=== PATIENT | male | born 1940 | race Caucasian/White ===

== ENCOUNTER 2020-01-23 14:20 | Inpatient (IN) | payer MEDICARE, MEDICAID ==
--- NOTE | 2020-01-23 15:08 | EDM.PDOC ---
ED HPI GENERAL MEDICAL PROBLEM - General Time Seen by Provider: 01/23/20 15:06 Source of Information: Reports: Patient, Family History Limitations: Reports: No Limitations - History of Present Illness INITIAL COMMENTS - FREE TEXT/NARRATIVE: Charlie came in with EMS,with complains of falling x 2 at the [facility] today.he was confused,and a poor historian.He feels dizzy,and had some dry heaves.He had difficulty walking.No fever or upper respiratory symptoms.His PMH includes MDD,AGUSTINA,DM and HTN - Related Data Allergies Allergy/AdvReac Type Severity Reaction Status Date / Time Sulfa (Sulfonamide Allergy Cannot Verified 12/20/15 09:08 Antibiotics) Remember Home Meds: Home Meds ALPRAZolam [Xanax] 0.25 mg PO 12/20/15 [History] Albuterol Sulfate [Ventolin Hfa] 12/20/15 [History] Aspirin 81 mg PO DAILY 12/20/15 [History] Carvedilol [Coreg] 6.25 mg PO 12/20/15 [History] Escitalopram [Lexapro] 10 mg PO 12/20/15 [History] Furosemide [Lasix] 40 mg PO DAILY 12/20/15 [History] Losartan [Cozaar] 12/20/15 [History] Meclizine [Antivert] 12.5 mg PO ONETIME 12/20/15 [History] Potassium Chloride [Klor-Con 10] 10 meq PO DAILY 12/20/15 [History] Tamsulosin HCl [Flomax] 0.4 mg PO 12/20/15 [History] atorvaSTATin [Lipitor] 10 mg PO ONETIME 12/20/15 [History] glipiZIDE [Glucotrol] 10 mg PO 12/20/15 [History] metFORMIN HCl [Glucophage XR] 750 mg PO 12/20/15 [History] traZODone 50 mg PO BEDTIME 12/20/15 [History] Past Medical History Cardiovascular History: Reports: CAD, Heart Failure, High Cholesterol, Hyper tension Psychiatric History: Reports: Anxiety Endocrine/Metabolic History: Reports: Diabetes, Type II - Past Surgical History Musculoskeletal Surgical History: Reports: Shoulder Surgery ED ROS GENERAL - Review of Systems Review Of Systems: Comprehensive ROS is negative, except as noted in HPI. ED EXAM, NEURO - Physical Exam Exam: See Below Exam Limited By: Altered Mental Status General Appearance: Alert Ears: Normal External Exam, Normal Canal, Hearing Grossly Normal, Normal TMs Head Exam: Atraumatic Neck: Normal Inspection Respiratory/Chest: Decreased Breath Sounds, Rales Cardiovascular: Normal Peripheral Pulses GI/Abdominal: Normal Bowel Sounds Neurological: Alert, Normal Mood/Affect. No: Oriented x 3 Extremities: Normal Inspection Psychiatric: Normal Affect Skin Exam: Warm, Dry EKG INTERPRETATION EKG Date: 01/23/20 Rhythm: NSR Course - Orders/Labs/Meds Orders: Active Orders 24 hr Category Date Time Status EKG Documentation Completion [RC] ASDIRECTED Care 01/23/20 14:25 Active CXR [Chest 2V] [CR] Stat Exams 01/23/20 14:40 Taken Head wo Cont [CT] Stat Exams 01/23/20 14:25 Taken Sodium Chloride 0.9% [Saline Flush] Med 01/23/20 14:25 Active 10 ml FLUSH ASDIRECTED PRN Peripheral IV Insertion Adult [OM.PC] Routine Oth 01/23/20 14:24 Ordered EKG 12 Lead [EK] Routine Ther 01/23/20 14:24 Ordered Medication Orders Sodium Chloride (Saline Flush) 10 ml FLUSH ASDIRECTED PRN PRN Reason: Keep Vein Open Labs: Laboratory Tests 01/23/20 01/23/20 01/23/20 Range/Units 14:45 14:45 14:45 WBC 11.2 (4.5-12.0) X10-3/uL RBC 3.91 L (4.30-5.75) x10(6)uL Hgb 12.1 L (13.5-17.8) g/dL Hct 37.7 (30.0-51.3) % MCV 96.4 H (80-96) fL MCH 31.0 (27.7-33.6) pg MCHC 32.2 (32.2-35.4) g/dL RDW 12.8 (11.5-15.5) % Plt Count 291 (125-369) X10(3)uL MPV 8.5 (7.4-10.4) fL Add Manual Diff Yes Neutrophils % (Manual) 98 H (46-82) % Lymphocytes % (Manual) 2 L (13-37) % Sodium 139 (135-145) mmol/L Potassium 4.2 (3.5-5.3) mmol/L Chloride 101 (100-110) mmol/L Carbon Dioxide 30 (21-32) mmol/L BUN 25 H (7-18) mg/dL Creatinine 1.7 H (0.70-1.30) mg/dL Est Cr Clr Drug Dosing TNP Estimated GFR (MDRD) 39 L (>60) BUN/Creatinine Ratio 14.7 (9-20) Glucose 167 H (80-116) mg/dL Calcium 8.6 (8.6-10.2) mg/dL Total Bilirubin 0.9 (0.1-1.3) mg/dL AST 27 H (5-25) IU/L ALT 20 (12-36) U/L Alkaline Phosphatase 105 (56-112) IU/L Troponin I 212.8 H* (4.0-60.3) pg/mL Total Protein 7.2 (6.0-8.0) g/dL Albumin 3.3 (3.2-4.6) g/dL Globulin 3.9 g/dL Albumin/Globulin Ratio 0.9 Meds: Medications Generic Name Dose Route Start Last Admin Trade Name Freq PRN Reason Stop Dose Admin Sodium Chloride 10 ml 01/23/20 14:25 Saline Flush FLUSH ASDIRECTED PRN Keep Vein Open Departure - Departure Time of Disposition: 16:34 Disposition: Still A Patient 30 Clinical Impression: Malaise - Discharge Information - Problem List & Annotations (1) Elevated troponin SNOMED Code(s): 593120484, 253445285, 301769646 Code(s): R79.89 - OTHER SPECIFIED ABNORMAL FINDINGS OF BLOOD CHEMISTRY Status: Acute Current Visit: Yes (2) Malaise SNOMED Code(s): 794979602 Code(s): R53.81 - OTHER MALAISE Status: Acute Current Visit: No (3) Diabetes type 2, controlled SNOMED Code(s): 91566036, 573224232 Code(s): E11.9 - TYPE 2 DIABETES MELLITUS WITHOUT COMPLICATIONS Status: Acute Current Visit: Yes (4) Falls frequently SNOMED Code(s): 698518624 Code(s): R29.6 - REPEATED FALLS Status: Acute Current Visit: Yes (5) BPH (benign prostatic hyperplasia) SNOMED Code(s): 977334147 Code(s): N40.0 - BENIGN PROSTATIC HYPERPLASIA WITHOUT LOWER URINRY TRACT SYMP Status: Acute Current Visit: Yes (6) H/O: CVA (cerebrovascular accident) SNOMED Code(s): 586131393 Code(s): Z86.73 - PRSNL HX OF TIA (TIA), AND CEREB INFRC W/O RESID DEFICITS Status: Acute Current Visit: Yes (7) Memory deficit SNOMED Code(s): 052591852 Code(s): R41.3 - OTHER AMNESIA Status: Acute Current Visit: Yes (8) Anxiety disorder, unspecified SNOMED Code(s): 444214560 Code(s): F41.9 - ANXIETY DISORDER, UNSPECIFIED Status: Acute Current Visit: No Qualifiers: Anxiety disorder type: unspecified anxiety disorder Qualified Code(s): F41.9 - Anxiety disorder, unspecified - Problem List Review Problem List Initiated/Reviewed/Updated: Yes - My Orders Last 24 Hours: My Active Orders 01/23/20 14:24 Peripheral IV Insertion Adult [OM.PC] Routine EKG 12 Lead [EK] Routine 01/23/20 14:25 EKG Documentation Completion [RC] ASDIRECTED Head wo Cont [CT] Stat Sodium Chloride 0.9% [Saline Flush] 10 ml FLUSH ASDIRECTED PRN 01/23/20 14:40 CXR [Chest 2V] [CR] Stat - Assessment/Plan Last 24 Hours: My Active Orders 01/23/20 14:24 Peripheral IV Insertion Adult [OM.PC] Routine EKG 12 Lead [EK] Routine 01/23/20 14:25 EKG Documentation Completion [RC] ASDIRECTED Head wo Cont [CT] Stat Sodium Chloride 0.9% [Saline Flush] 10 ml FLUSH ASDIRECTED PRN 01/23/20 14:40 CXR [Chest 2V] [CR] Stat Plan: His Trop is up.I will admit.
[2020-01-23] MEDS ORDERED: Albuterol/Ipratropium 3.0-0.5 MG/3 ML Neb Soln INH PRN (16:39)
[2020-01-23] MEDS: atorvaSTATin 10 MG Tab PO SCH (22:19)
--- NOTE | 2020-01-24 07:06 | PCM.HP.2 ---
H&P History of Present Illness - General Date of Service: 01/24/20 Admit Problem/Dx: Admission Diagnosis/Problem Admission Diagnosis/Problem Falls Source of Information: Patient - History of Present Illness Initial Comments - Free Text/Narative: Dandre is a 79-year-old male who came in last night because of weakness. He is from [facility], and metformin twice. He was noted to be generally weak and could not support himself. He is a poor historian. His medical record indicates that he has a history of coronary disease, hypertension, dementia and previous CVA. According to the weakness is 80 noted to his head and he does not endorse any headache, weakness of one side, chest pain or cough. He does have a history of CHF and is noted to be audibly wheezing. - Related Data Allergies/Adverse Reactions: Allergies Allergy/AdvReac Type Severity Reaction Status Date / Time Sulfa (Sulfonamide Allergy Cannot Verified 12/20/15 09:08 Antibiotics) Remember Home Medications: Home Meds ALPRAZolam [Xanax] 0.25 mg PO BID 12/20/15 [History] Aspirin 81 mg PO DAILY 12/20/15 [History] Carvedilol [Coreg] 6.25 mg PO BID 12/20/15 [History] Escitalopram [Lexapro] 10 mg PO DAILY 12/20/15 [History] Losartan [Cozaar] 100 mg PO DAILY 12/20/15 [History] Potassium Chloride [Klor-Con 10] 10 meq PO DAILY 12/20/15 [History] Tamsulosin HCl [Flomax] 0.4 mg PO DAILY 12/20/15 [History] atorvaSTATin [Lipitor] 10 mg PO ONETIME 12/20/15 [History] glipiZIDE [Glucotrol] 10 mg PO DAILY 12/20/15 [History] metFORMIN HCl [Glucophage XR] 1,000 mg PO DAILY 12/20/15 [History] traZODone 50 mg PO BEDTIME 12/20/15 [History] Multivitamin [Multi-Vitamin Daily] 1 each PO DAILY 01/23/20 [History] Vit D3 & K/Berberine HCl/Hops [Ostera] 1 each PO DAILY 01/23/20 [History] Past Medical History HEENT History: Reports: None Cardiovascular History: Reports: CAD, Heart Failure, High Cholesterol, Hypertension Gastrointestinal History: Reports: Colon Polyp, Hemorrhoids Genitourinary History: Reports: Renal Calculus Musculoskeletal History: Reports: Arthritis, Other (See Below) Other Musculoskeletal History: surgery on right arm and hand in past Neurological History: Reports: CVA Psychiatric History: Reports: Anxiety Endocrine/Metabolic History: Reports: Diabetes, Type II, Obesity/BMI 30+ - Infectious Disease History Infectious Disease History: Reports: Chicken Pox, Measles - Past Surgical History HEENT Surgical History: Reports: Adenoidectomy, Tonsillectomy Cardiovascular Surgical History: Reports: None GI Surgical History: Reports: Appendectomy, Colonoscopy Male Surgical History: Reports: None Endocrine Surgical History: Reports: None Neurological Surgical History: Reports: None Musculoskeletal Surgical History: Reports: None, Shoulder Surgery Dermatological Surgical History: Reports: None Social & Family History - Family History Family Medical History: Noncontributory - Tobacco Use Smoking Status *Q: Former Smoker Years of Tobacco use: 30 Packs/Tins Daily: 2 Used Tobacco, but Quit: Yes Month/Year Tobacco Last Used: january 2014 Second Hand Smoke Exposure: No - Caffeine Use Caffeine Use: Reports: Coffee - Recreational Drug Use Recreational Drug Use: No H&P Review of Systems - Review of Systems: Review Of Systems: Comprehensive ROS is negative, except as noted in HPI. Exam - Exam Exam: See Below - Vital Signs Vital Signs: Last Vital Signs Temp 98.6 F 01/24/20 00:25 Pulse 93 01/24/20 00:25 Resp 16 01/24/20 00:25 BP 106/58 L 01/24/20 00:25 Pulse Ox 90 L 01/24/20 00:25 Weight: 95.436 kg - Exam General: Alert, Mild Distress HEENT: PERRLA, Hearing Intact, Mucosa Moist & [place], Nares Patent, Normal Nasal Septum, Posterior Pharynx Clear, Conjunctiva Clear, EOMI, EACs Clear, TMs Clear Neck: Supple, Trachea Midline, 2 Lungs: Crackles, Rales, Wheezing Cardiovascular: Regular Rate GI/Abdominal Exam: Normal Bowel Sounds, Soft, Non-Tender, No Organomegaly, No Distention, No Abnormal Bruit, No Mass, Pelvis Stable (Male) Exam: Deferred Rectal (Males) Exam: Deferred Back Exam: Normal Inspection, Full Range of Motion, NT Extremities: Normal Inspection, Normal Range of Motion, Non-Tender, No Pedal Edema, Normal Capillary Refill Skin: Warm, Dry, Intact Neurological: Cranial Nerves Intact, Reflexes Equal Bilateral Neuro Extensive - Mental Status: No: Oriented x3 Neuro Extensive - Motor, Sensory, Reflexes: CN II-XII Intact Psychiatric: Normal Mood - Patient Data Lab Results Last 24 hrs: Laboratory Results - last 24 hr 01/23/20 01/23/20 01/23/20 Range/Units 14:45 14:45 14:45 WBC 11.2 (4.5-12.0) X10-3/uL RBC 3.91 L (4.30-5.75) x10(6)uL Hgb 12.1 L (13.5-17.8) g/dL Hct 37.7 (30.0-51.3) % MCV 96.4 H (80-96) fL MCH 31.0 (27.7-33.6) pg MCHC 32.2 (32.2-35.4) g/dL RDW 12.8 (11.5-15.5) % Plt Count 291 (125-369) X10(3)uL MPV 8.5 (7.4-10.4) fL Add Manual Diff Yes Neutrophils % (Manual) 98 H (46-82) % Lymphocytes % (Manual) 2 L (13-37) % Sodium 139 (135-145) mmol/L Potassium 4.2 (3.5-5.3) mmol/L Chloride 101 (100-110) mmol/L Carbon Dioxide 30 (21-32) mmol/L BUN 25 H (7-18) mg/dL Creatinine 1.7 H (0.70-1.30) mg/dL Est Cr Clr Drug Dosing TNP Estimated GFR (MDRD) 39 L (>60) BUN/Creatinine Ratio 14.7 (9-20) Glucose 167 H (80-116) mg/dL Calcium 8.6 (8.6-10.2) mg/dL Total Bilirubin 0.9 (0.1-1.3) mg/dL AST 27 H (5-25) IU/L ALT 20 (12-36) U/L Alkaline Phosphatase 105 (56-112) IU/L Troponin I 212.8 H* (4.0-60.3) pg/mL NT-Pro-B Natriuret Pep (<=450) pg/mL Total Protein 7.2 (6.0-8.0) g/dL Albumin 3.3 (3.2-4.6) g/dL Globulin 3.9 g/dL Albumin/Globulin Ratio 0.9 SARS Virus RNA (PCR) (NEGATIVE) 01/23/20 01/23/20 Range/Units 14:45 16:45 WBC (4.5-12.0) X10-3/uL RBC (4.30-5.75) x10(6)uL Hgb (13.5-17.8) g/dL Hct (30.0-51.3) % MCV (80-96) fL MCH (27.7-33.6) pg MCHC (32.2-35.4) g/dL RDW (11.5-15.5) % Plt Count (125-369) X10(3)uL MPV (7.4-10.4) fL Add Manual Diff Neutrophils % (Manual) (46-82) % Lymphocytes % (Manual) (13-37) % Sodium (135-145) mmol/L Potassium (3.5-5.3) mmol/L Chloride (100-110) mmol/L Carbon Dioxide (21-32) mmol/L BUN (7-18) mg/dL Creatinine (0.70-1.30) mg/dL Est Cr Clr Drug Dosing Estimated GFR (MDRD) (>60) BUN/Creatinine Ratio (9-20) Glucose (80-116) mg/dL Calcium (8.6-10.2) mg/dL Total Bilirubin (0.1-1.3) mg/dL AST (5-25) IU/L ALT (12-36) U/L Alkaline Phosphatase (56-112) IU/L Troponin I (4.0-60.3) pg/mL NT-Pro-B Natriuret Pep 5449 H* (<=450) pg/mL Total Protein (6.0-8.0) g/dL Albumin (3.2-4.6) g/dL Globulin g/dL Albumin/Globulin Ratio SARS Virus RNA (PCR) Negative (NEGATIVE) Result Diagrams: 01/24/20 06:20 01/24/20 06:20 EKG INTERPRETATION Rhythm: NSR Sepsis Event Note - Evaluation Sepsis Screening Result: No Definite Risk - Focused Exam Vital Signs: Vital Signs Temp Pulse Resp BP Pulse Ox 01/24/20 00:25 98.6 F 93 16 106/58 L 90 L 01/23/20 19:57 90 Date Exam was Performed: 01/24/20 Time Exam was Performed: 17:48 - Problem List (1) Elevated troponin SNOMED Code(s): 258469595, 927094281, 683158682 ICD Code: R79.89 - OTHER SPECIFIED ABNORMAL FINDINGS OF BLOOD CHEMISTRY Status: Acute Current Visit: Yes (2) Malaise SNOMED Code(s): 585129695 ICD Code: R53.81 - OTHER MALAISE Status: Acute Current Visit: Yes (3) Diabetes type 2, controlled SNOMED Code(s): 49564706, 714893222 ICD Code: E11.9 - TYPE 2 DIABETES MELLITUS WITHOUT COMPLICATIONS Status: Acute Current Visit: Yes Qualifiers: Diabetes mellitus lobsterman insulin use: without snf use (4) Falls frequently SNOMED Code(s): 008923502 ICD Code: R29.6 - REPEATED FALLS Status: Acute Current Visit: Yes (5) BPH (benign prostatic hyperplasia) SNOMED Code(s): 399634039 ICD Code: N40.0 - BENIGN PROSTATIC HYPERPLASIA WITHOUT LOWER URINRY TRACT SYMP Status: Acute Current Visit: Yes Qualifiers: Lower urinary tract symptom presence: symptoms present (6) H/O: CVA (cerebrovascular accident) SNOMED Code(s): 751773873 ICD Code: Z86.73 - PRSNL HX OF TIA (TIA), AND CEREB INFRC W/O RESID DEFICITS Status: Acute Current Visit: Yes (7) Memory deficit SNOMED Code(s): 419441438 ICD Code: R41.3 - OTHER AMNESIA Status: Acute Current Visit: Yes (8) Anxiety disorder, unspecified SNOMED Code(s): 795839363 ICD Code: F41.9 - ANXIETY DISORDER, UNSPECIFIED Status: Chronic Current Visit: No Qualifiers: Anxiety disorder type: unspecified anxiety disorder Qualified Code(s): F41.9 - Anxiety disorder, unspecified (9) CHF (congestive heart failure) SNOMED Code(s): 52828276 ICD Code: I50.9 - HEART FAILURE, UNSPECIFIED Status: Acute Current Visit: Yes Qualifiers: Heart failure type: unspecified (10) NSTEMI (non-ST elevated myocardial infarction) SNOMED Code(s): 91221043 ICD Code: I21.4 - NON-ST ELEVATION (NSTEMI) MYOCARDIAL INFARCTION Status: Acute Current Visit: Yes Problem List Initiated/Reviewed/Updated: Yes Orders Last 24hrs: Active Orders 24 hr Category Date Time Status Patient Status [ADT] Routine ADT 01/23/20 16:39 Active Blood Glucose Check, Bedside [RC] TIDMEALS Care 01/23/20 16:39 Active Height and Weight [RC] DAILY Care 01/23/20 16:39 Active Intake and Output [RC] QSHIFT Care 01/23/20 16:40 Active Oxygen Therapy [RC] PRN Care 01/23/20 16:39 Active RT Aerosol Therapy [RC] ASDIRECTED Care 01/23/20 16:41 Active VTE/DVT Education [RC] DAILY Care 01/23/20 16:39 Active Vital Signs [RC] 08,16,00 Care 01/23/20 16:39 Active OT Evaluation and Treatment [CONS] Routine Cons 01/24/20 07:05 Ordered PT Evaluation and Treatment [CONS] Routine Cons 01/24/20 07:05 Ordered Consistent Carbohydrate Diet [DIET] Diet 01/23/20 Breakfast Ordered CXR [Chest 2V] [CR] Stat Exams 01/23/20 14:40 Taken Head wo Cont [CT] Stat Exams 01/23/20 14:25 Taken BASIC METABOLIC PANEL,BMP [CHEM] AM Lab 01/24/20 06:20 Received CBC WITH AUTO DIFF [HEME] AM Lab 01/24/20 06:20 Received TROPONIN I [CHEM] AM Lab 01/24/20 06:20 Received ALPRAZolam [Xanax] Med 01/24/20 09:00 Active 0.25 mg PO BID Albuterol/Ipratropium [DuoNeb 3.0-0.5 MG/3 ML] Med 01/23/20 16:39 Active 3 ml INH ONETIME PRN Aspirin Med 01/24/20 09:00 Active 81 mg PO DAILY Escitalopram [Lexapro] Med 01/24/20 09:00 Active 10 mg PO DAILY Furosemide [Lasix] Med 01/24/20 09:00 Ordered 20 mg PO DAILY Losartan [Cozaar] Med 01/24/20 09:00 Active 100 mg PO DAILY Multivitamins [Tab-A-Jazmyn] Med 01/24/20 09:00 Active 1 tab PO DAILY Potassium Chloride [Klor-Con 10] Med 01/24/20 09:00 Active 10 meq PO DAILY Sodium Chloride 0.9% [Saline Flush] Med 01/23/20 14:25 Active 10 ml FLUSH ASDIRECTED PRN Tamsulosin [Flomax] Med 01/24/20 09:00 Active 0.4 mg PO DAILY Vit D3 & K/Berberine HCl/Hops [Ostera] Med 01/24/20 09:00 Pending 1 each PO DAILY atorvaSTATin [Lipitor] Med 01/23/20 22:00 Active 10 mg PO Q24H carvediloL [Coreg] Med 01/24/20 09:00 Active 6.25 mg PO BID glipiZIDE [Glucotrol] Med 01/24/20 09:00 Active 10 mg PO DAILY metFORMIN [Glucophage XR] Med 01/24/20 09:00 Active 1,000 mg PO DAILY traZODone Med 01/24/20 21:00 Active 50 mg PO BEDTIME Peripheral IV Insertion Adult [OM.PC] Routine Oth 01/23/20 14:24 Ordered Resuscitation Status Routine Resus Stat 01/23/20 16:39 Ordered EKG 12 Lead [EK] Routine Ther 01/23/20 14:24 Ordered Medication Orders Albuterol/Ipratropium (Duoneb 3.0-0.5 Mg/3 Ml) 3 ml INH ONETIME PRN PRN Reason: Shortness Of Breath/wheezing Last Admin: 01/23/20 19:57 Dose: 3 ml Documented by: CHERELLE Alprazolam (Xanax) 0.25 mg PO BID [facility] Aspirin (Aspirin) 81 mg PO DAILY [facility] Atorvastatin Calcium (Lipitor) 10 mg PO Q24H DAVID Last Admin: 01/23/20 22:19 Dose: 10 mg Documented by: CHERELLE Carvedilol (Coreg) 6.25 mg PO BID [facility] Escitalopram Oxalate (Lexapro) 10 mg PO DAILY [facility] Furosemide (Lasix) 20 mg PO DAILY [facility] Glipizide (Glucotrol) 10 mg PO DAILY [facility] Losartan Potassium (Cozaar) 100 mg PO DAILY [facility] Metformin HCl (Glucophage Xr) 1,000 mg PO DAILY [facility] Multivitamins/Minerals/Vitamin C (Tab-A-Jazmyn) 1 tab PO DAILY DAVID Non-Formulary Medication (Vit D3 & K/Berberine Hcl/Hops [Ostera]) 1 each PO DAILY DAVID Potassium Chloride (Klor-Con 10) 10 meq PO DAILY DAVID Sodium Chloride (Saline Flush) 10 ml FLUSH ASDIRECTED PRN PRN Reason: Keep Vein Open Tamsulosin HCl (Flomax) 0.4 mg PO DAILY DAVID Trazodone HCl (Trazodone) 50 mg PO BEDTIME DAVID Assessment/Plan Comment:: EKG is nondiagnostic, however his troponin is high,an d trending higher.. I will maximize medical treatment with Brilinta, aspirin Lovenox and beta reji. Also given Lasix for diuresis and repeat labs the morning.
[2020-01-24] MEDS: Sodium Chloride 0.9% 10 ML Syringe FLUSH PRN ×2 (07:58→18:28)
[2020-01-24] MEDS ORDERED: Losartan 50 MG Tab PO SCH (09:00)
[2020-01-24] MEDS ORDERED: metFORMIN 500 MG Tab.ER PO SCH (09:00)
[2020-01-24] MEDS ORDERED: Losartan 100 MG Tab PO SCH (09:00)
[2020-01-24] MEDS ORDERED: Furosemide 20 MG Tab PO SCH (09:00)
[2020-01-24] MEDS: Carvedilol 6.25 MG Tab PO SCH ×2 (09:50→21:13)
[2020-01-24] MEDS: Aspirin 81 MG Tab.Chew PO SCH (09:50)
[2020-01-24] MEDS: Potassium Chloride 10 MEQ Tab.ER PO SCH (09:51)
[2020-01-24] MEDS: Escitalopram 10 MG Tab PO SCH (09:52)
[2020-01-24] MEDS: Multivitamin Tab PO SCH (09:52)
[2020-01-24] MEDS: ALPRAZolam 0.25 MG Tab PO SCH ×2 (09:52→21:13)
[2020-01-24] MEDS: Tamsulosin 0.4 MG Cap.ER PO SCH (09:52)
[2020-01-24] MEDS: Cholecalciferol (Vitamin D3) 25 MCG Tab PO SCH (09:52)
[2020-01-24] MEDS: Albuterol/Ipratropium 3.0-0.5 MG/3 ML Neb Soln NEB PRN (14:53)
[2020-01-24] MEDS ORDERED: Ticagrelor 90 MG Tab PO ONE (17:47)
[2020-01-24] MEDS: Furosemide 20 MG/2 ML VIAL IVPUSH SCH (18:27)
[2020-01-24] MEDS: Enoxaparin 150 MG/1 ML Syringe SUBCUT SCH (18:27)
[2020-01-24] MEDS: traZODone 50 MG Tab PO SCH (21:13)
[2020-01-24] MEDS: atorvaSTATin 10 MG Tab PO SCH (21:13)
[2020-01-25] MEDS: Albuterol/Ipratropium 3.0-0.5 MG/3 ML Neb Soln NEB PRN ×2 (05:30→17:30)
[2020-01-25] MEDS: Sodium Chloride 0.9% 10 ML Syringe FLUSH PRN ×2 (08:22→13:13)
[2020-01-25] MEDS: Furosemide 20 MG/2 ML VIAL IVPUSH SCH ×2 (08:22→13:10)
[2020-01-25] MEDS: Potassium Chloride 10 MEQ Tab.ER PO SCH (08:24)
[2020-01-25] MEDS: Aspirin 81 MG Tab.Chew PO SCH (08:24)
[2020-01-25] MEDS: ALPRAZolam 0.25 MG Tab PO SCH ×2 (08:25→20:58)
[2020-01-25] MEDS: Tamsulosin 0.4 MG Cap.ER PO SCH (08:25)
[2020-01-25] MEDS: Multivitamin Tab PO SCH (08:25)
[2020-01-25] MEDS: Carvedilol 6.25 MG Tab PO SCH ×2 (08:25→20:58)
[2020-01-25] MEDS: Cholecalciferol (Vitamin D3) 25 MCG Tab PO SCH (08:25)
[2020-01-25] MEDS: Escitalopram 10 MG Tab PO SCH (08:26)
[2020-01-25] MEDS: Enoxaparin 150 MG/1 ML Syringe SUBCUT SCH (09:26)
--- NOTE | 2020-01-25 09:31 | PCM.PN ---
- General Info Date of Service: 01/25/20 Subjective Update: Feels better. Still weak.Denies Chest pain Functional Status: Reports: Pain Controlled - Review of Systems General: Reports: No Symptoms HEENT: Reports: No Symptoms Pulmonary: Reports: Cough Cardiovascular: Reports: No Symptoms Gastrointestinal: Reports: No Symptoms Genitourinary: Reports: No Symptoms Musculoskeletal: Reports: No Symptoms - Patient Data Vitals - Most Recent: Last Vital Signs Temp 98.4 F 01/25/20 08:09 Pulse 61 01/25/20 08:25 Resp 20 01/25/20 08:09 BP 123/60 01/25/20 08:25 Pulse Ox 94 L 01/25/20 08:09 Weight - Most Recent: 96.978 kg I&O - Last 24 Hours: Intake & Output 01/24/20 01/25/20 01/25/20 22:59 06:59 14:59 Intake Total 240 240 Output Total 325 350 Balance -85 -110 Lab Results Last 24 Hours: Laboratory Results - last 24 hr 01/24/20 01/24/20 01/24/20 Range/Units 06:47 10:56 17:46 POC Glucose 160 H 203 H 86 D (80-116) mg/dL 01/25/20 Range/Units 05:28 POC Glucose 151 H (80-116) mg/dL Med Orders - Current: Current Medications Albuterol/Ipratropium (Duoneb 3.0-0.5 Mg/3 Ml) 3 ml NEB QID PRN PRN Reason: Shortness of Breath Last Admin: 01/25/20 05:30 Dose: 3 ml Documented by: Alprazolam (Xanax) 0.25 mg PO BID [facility] Last Admin: 01/25/20 08:25 Dose: 0.25 mg Documented by: Aspirin (Aspirin) 81 mg PO DAILY [facility] Last Admin: 01/25/20 08:24 Dose: 81 mg Documented by: Atorvastatin Calcium (Lipitor) 10 mg PO Q24H [facility] Last Admin: 01/24/20 21:13 Dose: 10 mg Documented by: Carvedilol (Coreg) 6.25 mg PO BID [facility] Last Admin: 01/25/20 08:25 Dose: 6.25 mg Documented by: Cholecalciferol (Vitamin D3) 25 mcg PO DAILY [facility] Last Admin: 07/05/20 08:25 Dose: 25 mcg Documented by: Enoxaparin Sodium (Lovenox) 150 mg SUBCUT DAILY [facility] Last Admin: 01/24/20 18:27 Dose: 150 mg Documented by: Escitalopram Oxalate (Lexapro) 10 mg PO DAILY [facility] Last Admin: 01/25/20 08:26 Dose: 10 mg Documented by: Furosemide (Lasix) 20 mg IVPUSH BIDDIURETIC [facility] Last Admin: 01/25/20 08:22 Dose: 20 mg Documented by: Glipizide (Glucotrol) 10 mg PO DAILY [facility] Last Admin: 01/25/20 08:25 Dose: 10 mg Documented by: Multivitamins/Minerals/Vitamin C (Tab-A-Jazmyn) 1 tab PO DAILY [facility] Last Admin: 01/25/20 08:25 Dose: 1 tab Documented by: Potassium Chloride (Klor-Con 10) 10 meq PO DAILY [facility] Last Admin: 01/25/20 08:24 Dose: 10 meq Documented by: Sodium Chloride (Saline Flush) 10 ml FLUSH ASDIRECTED PRN PRN Reason: Keep Vein Open Last Admin: 01/25/20 08:22 Dose: 10 ml Documented by: Tamsulosin HCl (Flomax) 0.4 mg PO DAILY [facility] Last Admin: 01/25/20 08:25 Dose: 0.4 mg Documented by: Trazodone HCl (Trazodone) 50 mg PO BEDTIME [facility] Last Admin: 01/24/20 21:13 Dose: 50 mg Documented by: Discontinued Medications Albuterol/Ipratropium (Duoneb 3.0-0.5 Mg/3 Ml) 3 ml INH ONETIME PRN PRN Reason: Shortness Of Breath/wheezing Last Admin: 01/23/20 19:57 Dose: 3 ml Documented by: Furosemide (Lasix) 20 mg PO DAILY [facility] Last Admin: 01/24/20 09:51 Dose: 20 mg Documented by: Losartan Potassium (Cozaar) 100 mg PO DAILY [facility] Losartan Potassium (Cozaar) 100 mg PO DAILY [facility] Last Admin: 01/24/20 09:51 Dose: 100 mg Documented by: Metformin HCl (Glucophage Xr) 1,000 mg PO DAILY [facility] Last Admin: 01/24/20 09:51 Dose: 1,000 mg Documented by: Ticagrelor (Brilinta) 180 mg PO ONETIME ONE Stop: 01/24/20 17:48 Last Admin: 01/24/20 18:27 Dose: 180 mg Documented by: - Exam General: Alert HEENT: Pupils Equal Lungs: Crackles, Rales Cardiovascular: Regular Rate, Murmurs Back Exam: Normal Inspection Sepsis Event Note - Evaluation Sepsis Screening Result: No Definite Risk - Focused Exam Vital Signs: Vital Signs Temp Pulse Pulse Resp BP BP Pulse Ox 01/25/20 08:25 61 123/60 01/25/20 08:09 98.4 F 61 20 123/60 94 L 01/25/20 07:01 98.0 F 70 16 126/58 L 97 01/25/20 06:15 01/25/20 05:30 71 01/25/20 00:00 99.1 F 78 16 112/57 L 95 01/24/20 22:20 Pulse Ox 01/25/20 08:25 01/25/20 08:09 01/25/20 07:01 01/25/20 06:15 96 01/25/20 05:30 01/25/20 00:00 01/24/20 22:20 97 Date Exam was Performed: 01/25/20 Time Exam was Performed: 09:29 - Problem List & Annotations (1) Elevated troponin SNOMED Code(s): 291193197, 175570484, 508793864 Code(s): R79.89 - OTHER SPECIFIED ABNORMAL FINDINGS OF BLOOD CHEMISTRY Status: Acute Current Visit: Yes (2) Malaise SNOMED Code(s): 334260532 Code(s): R53.81 - OTHER MALAISE Status: Acute Current Visit: Yes (3) Diabetes type 2, controlled SNOMED Code(s): 13905597, 969997273 Code(s): E11.9 - TYPE 2 DIABETES MELLITUS WITHOUT COMPLICATIONS Status: Ac [place] Current Visit: Yes Qualifiers: Diabetes mellitus intermission coordinator insulin use: without intermission coordinator use (4) Falls frequently SNOMED Code(s): 036210510 Code(s): R29.6 - REPEATED FALLS Status: Acute Current Visit: Yes (5) BPH (benign prostatic hyperplasia) SNOMED Code(s): 713070898 Code(s): N40.0 - BENIGN PROSTATIC HYPERPLASIA WITHOUT LOWER URINRY TRACT SYMP Status: Acute Current Visit: Yes Qualifiers: Lower urinary tract symptom presence: symptoms present (6) H/O: CVA (cerebrovascular accident) SNOMED Code(s): 512468479 Code(s): Z86.73 - PRSNL HX OF TIA (TIA), AND CEREB INFRC W/O RESID DEFICITS Status: Acute Current Visit: Yes (7) Memory deficit SNOMED Code(s): 412753638 Code(s): R41.3 - OTHER AMNESIA Status: Acute Current Visit: Yes (8) Anxiety disorder, unspecified SNOMED Code(s): 881391233 Code(s): F41.9 - ANXIETY DISORDER, UNSPECIFIED Status: Chronic Current Visit: No Qualifiers: Anxiety disorder type: unspecified anxiety disorder Qualified Code(s): F41.9 - Anxiety disorder, unspecified (9) CHF (congestive heart failure) SNOMED Code(s): 69373302 Code(s): I50.9 - HEART FAILURE, UNSPECIFIED Status: Acute Current Visit: Yes Qualifiers: Heart failure type: unspecified (10) NSTEMI (non-ST elevated myocardial infarction) SNOMED Code(s): 69096368 Code(s): I21.4 - NON-ST ELEVATION (NSTEMI) MYOCARDIAL INFARCTION Status: Acute Current Visit: Yes - Problem List Review Problem List Initiated/Reviewed/Updated: Yes - My Orders Last 24 Hours: My Active Orders 01/24/20 09:00 ALPRAZolam [Xanax] 0.25 mg PO BID Aspirin 81 mg PO DAILY Cholecalciferol (Vitamin D3) [Vitamin D3] 25 mcg PO DAILY Escitalopram [Lexapro] 10 mg PO DAILY Multivitamins [Tab-A-Jazmyn] 1 tab PO DAILY Potassium Chloride [Klor-Con 10] 10 meq PO DAILY Tamsulosin [Flomax] 0.4 mg PO DAILY carvediloL [Coreg] 6.25 mg PO BID glipiZIDE [Glucotrol] 10 mg PO DAILY 01/24/20 14:40 Albuterol/Ipratropium [DuoNeb 3.0-0.5 MG/3 ML] 3 ml NEB QID PRN 01/24/20 14:42 RT Aerosol Therapy [RC] ASDIRECTED 01/24/20 18:00 Enoxaparin [Lovenox] 150 mg SUBCUT DAILY Furosemide [Lasix] 20 mg IVPUSH BIDDIURETIC 01/24/20 18:21 Moore Catheter Insertion [Insert Urinary Catheter] [OM.PC] Stat 01/24/20 18:22 Urinary Catheter Assessment [RC] QSHIFT 01/24/20 21:00 traZODone 50 mg PO BEDTIME 01/26/20 05:11 BASIC METABOLIC PANEL,BMP [CHEM] AM CBC WITH AUTO DIFF [HEME] AM PRO B-TYPE NATRIUR PEPT,BNPPRO [CHEM] DAILY TROPONIN I [CHEM] AM 01/27/20 05:11 PRO B-TYPE NATRIUR PEPT,BNPPRO [CHEM] DAILY 01/28/20 05:11 PRO B-TYPE NATRIUR PEPT,BNPPRO [CHEM] DAILY - Plan Plan:: Continue Lovenox for 24 h. BB,Aspirin. Repeat Labs in AM. PT/OT.
[2020-01-25] MEDS: traZODone 50 MG Tab PO SCH (20:58)
[2020-01-25] MEDS: atorvaSTATin 10 MG Tab PO SCH (21:00)
--- NOTE | 2020-01-26 08:58 | PCM.PN ---
- General Info Date of Service: 01/26/20 Subjective Update: Feels better. Still weak.Denies Chest pain. Functional Status: Reports: Pain Controlled - Review of Systems General: Reports: Weakness HEENT: Reports: No Symptoms Pulmonary: Reports: No Symptoms Cardiovascular: Reports: Orthopnea Gastrointestinal: Reports: No Symptoms Genitourinary: Reports: No Symptoms - Patient Data Vitals - Most Recent: Last Vital Signs Temp 98.6 F 01/26/20 00:00 Pulse 67 01/26/20 00:00 Resp 16 01/26/20 00:00 BP 130/64 01/26/20 00:00 Pulse Ox 96 01/26/20 00:00 Weight - Most Recent: 97.613 kg I&O - Last 24 Hours: Intake & Output 01/25/20 01/26/20 01/26/20 22:59 06:59 14:59 Intake Total 240 120 Output Total 650 175 Balance -410 -55 Lab Results Last 24 Hours: Laboratory Results - last 24 hr 01/25/20 01/25/20 01/26/20 Range/Units 11:29 17:05 06:12 WBC (4.5-12.0) X10-3/uL RBC (4.30-5.75) x10(6)uL Hgb (13.5-17.8) g/dL Hct (30.0-51.3) % MCV (80-96) fL MCH (27.7-33.6) pg MCHC (32.2-35.4) g/dL RDW (11.5-15.5) % Plt Count (125-369) X10(3)uL MPV (7.4-10.4) fL Neut % (Auto) (46-82) % Lymph % (Auto) (13-37) % [place] % (Auto) (4-12) % Eos % (Auto) (1.0-5.0) % Baso % (Auto) (0-2) % Neut # (Auto) (1.6-8.3) # Lymph # (Auto) (0.6-5.0) # [place] # (Auto) (0.0-1.3) # Eos # (Auto) (0.0-0.8) # Baso # (Auto) (0.0-0.2) # Sodium (135-145) mmol/L Potassium (3.5-5.3) mmol/L Chloride (100-110) mmol/L Carbon Dioxide (21-32) mmol/L BUN (7-18) mg/dL Creatinine (0.70-1.30) mg/dL Est Cr Clr Drug Dosing mL/min Estimated GFR (MDRD) (>60) BUN/Creatinine Ratio (9-20) Glucose (80-116) mg/dL POC Glucose 211 H 148 H 122 H (80-116) mg/dL Calcium (8.6-10.2) mg/dL Troponin I (4.0-60.3) pg/mL NT-Pro-B Natriuret Pep (<=450) pg/mL 01/26/20 01/26/20 01/26/20 Range/Units 06:25 06:25 06:25 WBC 7.3 (4.5-12.0) X10-3/uL RBC 3.48 L (4.30-5.75) x10(6)uL Hgb 10.9 L (13.5-17.8) g/dL Hct 33.4 (30.0-51.3) % MCV 96.1 H (80-96) fL MCH 31.2 (27.7-33.6) pg MCHC 32.5 (32.2-35.4) g/dL RDW 13.1 (11.5-15.5) % Plt Count 247 (125-369) X10(3)uL MPV 8.7 (7.4-10.4) fL Neut % (Auto) 82.3 H (46-82) % Lymph % (Auto) 7.4 L (13-37) % [place] % (Auto) 8.0 (4-12) % Eos % (Auto) 2 (1.0-5.0) % Baso % (Auto) 0 (0-2) % Neut # (Auto) 6.1 (1.6-8.3) # Lymph # (Auto) 0.5 L (0.6-5.0) # [place] # (Auto) 0.6 (0.0-1.3) # Eos # (Auto) 0.1 (0.0-0.8) # Baso # (Auto) 0.0 (0.0-0.2) # Sodium 139 (135-145) mmol/L Potassium 3.1 L (3.5-5.3) mmol/L Chloride 103 (100-110) mmol/L Carbon Dioxide 30 (21-32) mmol/L BUN 29 H (7-18) mg/dL Creatinine 1.3 (0.70-1.30) mg/dL Est Cr Clr Drug Dosing 46.04 mL/min Estimated GFR (MDRD) 54 L (>60) BUN/Creatinine Ratio 22.3 H (9-20) Glucose 119 H (80-116) mg/dL POC Glucose (80-116) mg/dL Calcium 8.1 L (8.6-10.2) mg/dL Troponin I 2870.4 H* (4.0-60.3) pg/mL NT-Pro-B Natriuret Pep 7456 H* (<=450) pg/mL Med Orders - Current: Current Medications Albuterol/Ipratropium (Duoneb 3.0-0.5 Mg/3 Ml) 3 ml NEB QID PRN PRN Reason: Shortness of Breath Last Admin: 01/25/20 17:30 Dose: 3 ml Documented by: Alprazolam (Xanax) 0.25 mg PO BID [facility] Last Admin: 01/25/20 20:58 Dose: 0.25 mg Documented by: Aspirin (Aspirin) 81 mg PO DAILY [facility] Last Admin: 01/25/20 08:24 Dose: 81 mg Documented by: Atorvastatin Calcium (Lipitor) 10 mg PO Q24H [facility] Last Admin: 01/25/20 21:00 Dose: 10 mg Documented by: Carvedilol (Coreg) 6.25 mg PO BID [facility] Last Admin: 01/25/20 20:58 Dose: 6.25 mg Documented by: Cholecalciferol (Vitamin D3) 25 mcg PO DAILY [facility] Last Admin: 01/25/20 08:25 Dose: 25 mcg Documented by: Enoxaparin Sodium (Lovenox) 150 mg SUBCUT DAILY [facility] Last Admin: 01/25/20 09:26 Dose: 150 mg Documented by: Escitalopram Oxalate (Lexapro) 10 mg PO DAILY [facility] Last Admin: 01/25/20 08:26 Dose: 10 mg Documented by: Furosemide (Lasix) 40 mg IVPUSH BID [facility] Glipizide (Glucotrol) 10 mg PO DAILY [facility] Last Admin: 01/25/20 08:25 Dose: 10 mg Documented by: Multivitamins/Minerals/Vitamin C (Tab-A-Jazmyn) 1 tab PO DAILY [facility] Last Admin: 01/25/20 08:25 Dose: 1 tab Documented by: Potassium Chloride (Klor-Con 10) 10 meq PO DAILY [facility] Last Admin: 01/25/20 08:24 Dose: 10 meq Documented by: Sodium Chloride (Saline Flush) 10 ml FLUSH ASDIRECTED PRN PRN Reason: Keep Vein Open Last Admin: 01/25/20 13:13 Dose: 10 ml Documented by: Tamsulosin HCl (Flomax) 0.4 mg PO DAILY [facility] Last Admin: 01/25/20 08:25 Dose: 0.4 mg Documented by: Trazodone HCl (Trazodone) 50 mg PO BEDTIME [facility] Last Admin: 01/25/20 20:58 Dose: 50 mg Documented by: Discontinued Medications Albuterol/Ipratropium (Duoneb 3.0-0.5 Mg/3 Ml) 3 ml INH ONETIME PRN PRN Reason: Shortness Of Breath/wheezing Last Admin: 01/23/20 19:57 Dose: 3 ml Documented by: Furosemide (Lasix) 20 mg PO DAILY [facility] Last Admin: 01/24/20 09:51 Dose: 20 mg Documented by: Furosemide (Lasix) 20 mg IVPUSH BIDDIURETIC [facility] Last Admin: 01/25/20 13:10 Dose: 20 mg Documented by: Losartan Potassium (Cozaar) 100 mg PO DAILY [facility] Losartan Potassium (Cozaar) 100 mg PO DAILY [facility] Last Admin: 01/24/20 09:51 Dose: 100 mg Documented by: Metformin HCl (Glucophage Xr) 1,000 mg PO DAILY [facility] Last Admin: 01/24/20 09:51 Dose: 1,000 mg Documented by: Ticagrelor (Brilinta) 180 mg PO ONETIME ONE Stop: 01/24/20 17:48 Last Admin: 01/24/20 18:27 Dose: 180 mg Documented by: - Exam Quality Assessment: No: Supplemental Oxygen General: Alert, Oriented HEENT: Pupils Equal Neck: Supple Lungs: Crackles, Rales Cardiovascular: Regular Rate GI/Abdominal Exam: Normal Bowel Sounds Back Exam: Normal Inspection Sepsis Event Note - Evaluation Sepsis Screening Result: No Definite Risk - Focused Exam Vital Signs: Vital Signs Temp Pulse Pulse Resp BP BP Pulse Ox 01/26/20 00:00 98.6 F 67 16 130/64 96 01/25/20 20:58 67 130/64 Date Exam was Performed: 01/26/20 Time Exam was Performed: 08:55 - Problem List & Annotations (1) NSTEMI (non-ST elevated myocardial infarction) SNOMED Code(s): 61985067 Code(s): I21.4 - NON-ST ELEVATION (NSTEMI) MYOCARDIAL INFARCTION Status: Acute Current Visit: Yes (2) Elevated troponin SNOMED Code(s): 128906810, 219698553, 407257217 Code(s): R79.89 - OTHER SPECIFIED ABNORMAL FINDINGS OF BLOOD CHEMISTRY Status: Acute Current Visit: Yes (3) Malaise SNOMED Code(s): 104338502 Code(s): R53.81 - OTHER MALAISE Status: Acute Current Visit: Yes (4) Diabetes type 2, controlled SNOMED Code(s): 91244054, 101142567 Code(s): E11.9 - TYPE 2 DIABETES MELLITUS WITHOUT COMPLICATIONS Status: Acute Current Visit: Yes Qualifiers: Diabetes mellitus group home insulin use: without group home use (5) Falls frequently SNOMED Code(s): 996735527 Code(s): R29.6 - REPEATED FALLS Status: Acute Current Visit: Yes (6) BPH (benign prostatic hyperplasia) SNOMED Code(s): 705037684 Code(s): N40.0 - BENIGN PROSTATIC HYPERPLASIA WITHOUT LOWER URINRY TRACT SYMP Status: Acute Current Visit: Yes Qualifiers: Lower urinary tract symptom presence: symptoms present (7) H/O: CVA (cerebrovascular accident) SNOMED Code(s): 450822043 Code(s): Z86.73 - PRSNL HX OF TIA (TIA), AND CEREB INFRC W/O RESID DEFICITS Status: Acute Current Visit: Yes (8) Memory deficit SNOMED Code(s): 144350948 Code(s): R41.3 - OTHER AMNESIA Status: Acute Current Visit: Yes (9) Anxiety disorder, unspecified SNOMED Code(s): 180453240 Code(s): F41.9 - ANXIETY DISORDER, UNSPECIFIED Status: Chronic Current Visit: No Qualifiers: Anxiety disorder type: unspecified anxiety disorder Qualified Code(s): F41.9 - Anxiety disorder, unspecified (10) CHF (congestive heart failure) SNOMED Code(s): 90798745 Code(s): I50.9 - HEART FAILURE, UNSPECIFIED Status: Acute Current Visit: Yes Qualifiers: Heart failure type: unspecified - Problem List Review Problem List Initiated/Reviewed/Updated: Yes - My Orders Last 24 Hours: My Active Orders 01/26/20 09:00 Furosemide [Lasix] 40 mg IVPUSH BID 01/27/20 05:11 BASIC METABOLIC PANEL,BMP [CHEM] AM CBC WITH AUTO DIFF [HEME] AM PRO B-TYPE NATRIUR PEPT,BNPPRO [CHEM] DAILY TROPONIN I [CHEM] AM 01/28/20 05:11 PRO B-TYPE NATRIUR PEPT,BNPPRO [CHEM] DAILY - Plan Plan:: Increase Lasix. Consult PT.
[2020-01-26] MEDS ORDERED: Furosemide 40 MG/4 ML VIAL IVPUSH SCH (09:00)
[2020-01-26] MEDS: Aspirin 81 MG Tab.Chew PO SCH (10:46)
[2020-01-26] MEDS: Multivitamin Tab PO SCH (10:46)
[2020-01-26] MEDS: Furosemide 40 MG/4 ML VIAL IVPUSH SCH ×2 (10:47→13:51)
[2020-01-26] MEDS: Carvedilol 6.25 MG Tab PO SCH ×2 (10:47→20:36)
[2020-01-26] MEDS: Cholecalciferol (Vitamin D3) 25 MCG Tab PO SCH (10:47)
[2020-01-26] MEDS: Potassium Chloride 10 MEQ Tab.ER PO SCH (10:49)
[2020-01-26] MEDS: ALPRAZolam 0.25 MG Tab PO SCH ×2 (11:05→20:46)
[2020-01-26] MEDS: Furosemide 20 MG/2 ML VIAL IVPUSH SCH (19:04)
[2020-01-26] MEDS: Escitalopram 10 MG Tab PO SCH ×2 (19:04→20:37)
[2020-01-26] MEDS: Tamsulosin 0.4 MG Cap.ER PO SCH ×2 (19:04→20:36)
[2020-01-26] MEDS: Albuterol/Ipratropium 3.0-0.5 MG/3 ML Neb Soln NEB PRN (20:32)
[2020-01-26] MEDS: traZODone 50 MG Tab PO SCH (20:37)
[2020-01-26] MEDS: atorvaSTATin 10 MG Tab PO SCH (21:02)
[2020-01-27] MEDS: Albuterol/Ipratropium 3.0-0.5 MG/3 ML Neb Soln NEB PRN (06:44)
[2020-01-27] MEDS: Furosemide 40 MG/4 ML VIAL IVPUSH SCH (07:52)
[2020-01-27] MEDS: Sodium Chloride 0.9% 10 ML Syringe FLUSH PRN (07:56)
[2020-01-27] MEDS: Aspirin 81 MG Tab.Chew PO SCH (08:01)
[2020-01-27] MEDS: Carvedilol 6.25 MG Tab PO SCH ×2 (08:01→20:28)
[2020-01-27] MEDS: Multivitamin Tab PO SCH (08:03)
[2020-01-27] MEDS: Potassium Chloride 10 MEQ Tab.ER PO SCH (08:03)
[2020-01-27] MEDS: Cholecalciferol (Vitamin D3) 25 MCG Tab PO SCH (08:04)
[2020-01-27] MEDS: ALPRAZolam 0.25 MG Tab PO SCH ×2 (08:04→20:28)
[2020-01-27] MEDS ORDERED: Metolazone 5 MG Tab PO ONE (08:29)
--- NOTE | 2020-01-27 08:33 | PCM.PN ---
- General Info Date of Service: 01/27/20 Subjective Update: Feels better. Still weak.Denies Chest pain.Needs O2. Functional Status: Reports: Pain Controlled - Review of Systems General: Reports: No Symptoms HEENT: Reports: No Symptoms Pulmonary: Reports: No Symptoms Cardiovascular: Reports: No Symptoms - Patient Data Vitals - Most Recent: Last Vital Signs Temp 97.8 F 01/27/20 07:41 Pulse 61 01/27/20 08:01 Resp 20 01/27/20 07:41 BP 118/54 L 01/27/20 08:01 Pulse Ox 88 L 01/27/20 07:43 Weight - Most Recent: 99.082 kg I&O - Last 24 Hours: Intake & Output 01/26/20 01/27/20 01/27/20 22:59 06:59 14:59 Intake Total 600 200 Output Total 900 250 Balance -300 -50 Lab Results Last 24 Hours: Laboratory Results - last 24 hr 01/26/20 01/27/20 01/27/20 Range/Units 16:44 06:30 06:30 WBC 6.9 (4.5-12.0) X10-3/uL RBC 3.42 L (4.30-5.75) x10(6)uL Hgb 10.7 L (13.5-17.8) g/dL Hct 33.1 (30.0-51.3) % MCV 96.7 H (80-96) fL MCH 31.3 (27.7-33.6) pg MCHC 32.4 (32.2-35.4) g/dL RDW 12.8 (11.5-15.5) % Plt Count 272 (125-369) X10(3)uL MPV 8.7 (7.4-10.4) fL Neut % (Auto) 77.2 (46-82) % Lymph % (Auto) 10.5 L (13-37) % Weston % (Auto) 9.8 (4-12) % Eos % (Auto) 2 (1.0-5.0) % Baso % (Auto) 0 (0-2) % Neut # (Auto) 5.3 (1.6-8.3) # Lymph # (Auto) 0.7 (0.6-5.0) # Weston # (Auto) 0.7 (0.0-1.3) # Eos # (Auto) 0.2 (0.0-0.8) # Baso # (Auto) 0.0 (0.0-0.2) # Sodium (135-145) mmol/L Potassium (3.5-5.3) mmol/L Chloride (100-110) mmol/L Carbon Dioxide (21-32) mmol/L BUN (7-18) mg/dL Creatinine (0.70-1.30) mg/dL Est Cr Clr Drug Dosing mL/min Estimated GFR (MDRD) (>60) BUN/Creatinine Ratio (9-20) Glucose (80-116) mg/dL POC Glucose 127 H (80-116) mg/dL Calcium (8.6-10.2) mg/dL Troponin I 1479.4 H* (4.0-60.3) pg/mL NT-Pro-B Natriuret Pep 4517 H* (<=450) pg/mL 01/26/ Range/Units 06:30 WBC (4.5-12.0) X10-3/uL RBC (4.30-5.75) x10(6)uL Hgb (13.5-17.8) g/dL Hct (30.0-51.3) % MCV (80-96) fL MCH (27.7-33.6) pg MCHC (32.2-35.4) g/dL RDW (11.5-15.5) % Plt Count (125-369) X10(3)uL MPV (7.4-10.4) fL Neut % (Auto) (46-82) % Lymph % (Auto) (13-37) % Weston % (Auto) (4-12) % Eos % (Auto) (1.0-5.0) % Baso % (Auto) (0-2) % Neut # (Auto) (1.6-8.3) # Lymph # (Auto) (0.6-5.0) # Weston # (Auto) (0.0-1.3) # Eos # (Auto) (0.0-0.8) # Baso # (Auto) (0.0-0.2) # Sodium 141 (135-145) mmol/L Potassium 3.5 (3.5-5.3) mmol/L Chloride 105 (100-110) mmol/L Carbon Dioxide 31 (21-32) mmol/L BUN 27 H (7-18) mg/dL Creatinine 1.4 H (0.70-1.30) mg/dL Est Cr Clr Drug Dosing 42.75 mL/min Estimated GFR (MDRD) 49 L (>60) BUN/Creatinine Ratio 19.3 (9-20) Glucose 119 H (80-116) mg/dL POC Glucose (80-116) mg/dL Calcium 8.1 L (8.6-10.2) mg/dL Troponin I (4.0-60.3) pg/mL NT-Pro-B Natriuret Pep (<=450) pg/mL Med Orders - Current: Current Medications Albuterol/Ipratropium (Duoneb 3.0-0.5 Mg/3 Ml) 3 ml NEB QID PRN PRN Reason: Shortness of Breath Last Admin: 01/27/20 06:44 Dose: 3 ml Documented by: Alprazolam (Xanax) 0.25 mg PO BID [facility] Last Admin: 01/27/20 08:04 Dose: 0.25 mg Documented by: Aspirin (Aspirin) 81 mg PO DAILY [facility] Last Admin: 01/27/20 08:01 Dose: 81 mg Documented by: Atorvastatin Calcium (Lipitor) 10 mg PO Q24H [facility] Last Admin: 01/26/20 21:02 Dose: 10 mg Documented by: Carvedilol (Coreg) 6.25 mg PO BID [facility] Last Admin: 01/27/20 08:01 Dose: 6.25 mg Documented by: Cholecalciferol (Vitamin D3) 25 mcg PO DAILY [facility] Last Admin: 01/27/20 08:04 Dose: 25 mcg Documented by: Escitalopram Oxalate (Lexapro) 10 mg PO BEDTIME [facility] Last Admin: 01/26/20 20:37 Dose: 10 mg Documented by: Furosemide (Lasix) 40 mg PO BIDDIURETIC [facility] Glipizide (Glucotrol) 10 mg PO DAILY [facility] Last Admin: 01/27/20 08:02 Dose: 10 mg Documented by: Metolazone (Zaroxolyn) 5 mg PO ONETIME ONE Stop: 01/27/20 08:30 Multivitamins/Minerals/Vitamin C (Tab-A-Jazmyn) 1 tab PO DAILY [facility] Last Admin: 01/27/20 08:03 Dose: 1 tab Documented by: Potassium Chloride (Klor-Con 10) 10 meq PO DAILY [facility] Last Admin: 01/27/20 08:03 Dose: 10 meq Documented by: Sodium Chloride (Saline Flush) 10 ml FLUSH ASDIRECTED PRN PRN Reason: Keep Vein Open Last Admin: 01/27/20 07:56 Dose: 10 ml Documented by: Tamsulosin HCl (Flomax) 0.4 mg PO BEDTIME [facility] Last Admin: 01/26/20 20:36 Dose: 0.4 mg Documented by: Trazodone HCl (Trazodone) 50 mg PO BEDTIME [facility] Last Admin: 01/26/20 20:37 Dose: 50 mg Documented by: Discontinued Medications Albuterol/Ipratropium (Duoneb 3.0-0.5 Mg/3 Ml) 3 ml INH ONETIME PRN PRN Reason: Shortness Of Breath/wheezing Last Admin: 01/23/20 19:57 Dose: 3 ml Documented by: Enoxaparin Sodium (Lovenox) 150 mg SUBCUT DAILY [facility] Last Admin: 01/25/20 09:26 Dose: 150 mg Documented by: Escitalopram Oxalate (Lexapro) 10 mg PO DAILY [facility] Last Admin: 01/26/20 19:04 Dose: Not Given Documented by: Furosemide (Lasix) 20 mg PO DAILY [facility] Last Admin: 01/24/20 09:51 Dose: 20 mg Documented by: Furosemide (Lasix) 20 mg IVPUSH BIDDIURETIC [facility] Last Admin: 01/26/20 19:04 Dose: Not Given Documented by: Furosemide (Lasix) 40 mg IVPUSH BID [facility] Last Admin: 01/26/20 19:04 Dose: Not Given Documented by: Furosemide (Lasix) 40 mg IVPUSH BIDDIURETIC [facility] Last Admin: 01/27/20 07:52 Dose: 40 mg Documented by: Losartan Potassium (Cozaar) 100 mg PO DAILY [facility] Losartan Potassium (Cozaar) 100 mg PO DAILY [facility] Last Admin: 01/24/20 09:51 Dose: 100 mg Documented by: Metformin HCl (Glucophage Xr) 1,000 mg PO DAILY [facility] Last Admin: 01/24/20 09:51 Dose: 1,000 mg Documented by: Tamsulosin HCl (Flomax) 0.4 mg PO DAILY [facility] Last Admin: 01/26/20 19:04 Dose: Not Given Documented by: Ticagrelor (Brilinta) 180 mg PO ONETIME ONE Stop: 01/24/20 17:48 Last Admin: 01/24/20 18:27 Dose: 180 mg Documented by: - Exam Quality Assessment: Supplemental Oxygen General: Alert Neck: Supple Lungs: Crackles, Rales Cardiovascular: Regular Rate Sepsis Event Note - Evaluation Sepsis Screening Result: No Definite Risk - Focused Exam Vital Signs: Vital Signs Temp Pulse Pulse Resp BP BP BP 01/27/20 08:01 61 118/54 L 01/27/20 07:43 01/27/20 07:41 97.8 F 64 20 118/54 L 01/27/20 06:30 67 01/27/20 00:00 98.3 F 67 20 118/63 01/26/20 20:36 67 118/63 Pulse Ox Pulse Ox Pulse Ox 01/27/20 08:01 01/27/20 07:43 94 L 88 L 01/27/20 07:41 88 L 01/27/20 06:30 93 L 01/27/20 00:00 93 L 01/26/20 20:36 Date Exam was Performed: 01/27/20 Time Exam was Performed: 08:32 - Problem List & Annotations (1) NSTEMI (non-ST elevated myocardial infarction) SNOMED Code(s): 48990396 Code(s): I21.4 - NON-ST ELEVATION (NSTEMI) MYOCARDIAL INFARCTION Status: Acute Current Visit: Yes (2) Elevated troponin SNOMED Code(s): 741557858, 965892502, 502634071 Code(s): R79.89 - OTHER SPECIFIED ABNORMAL FINDINGS OF BLOOD CHEMISTRY Status: Acute Current Visit: Yes (3) Malaise SNOMED Code(s): 862239889 Code(s): R53.81 - OTHER MALAISE Status: Acute Current Visit: Yes (4) Diabetes type 2, controlled SNOMED Code(s): 28981018, 202941218 Code(s): E11.9 - TYPE 2 DIABETES MELLITUS WITHOUT COMPLICATIONS Status: Acute Current Visit: Yes Qualifiers: Diabetes mellitus correction insulin use: without correction use (5) Falls frequently SNOMED Code(s): 244339922 Code(s): R29.6 - REPEATED FALLS Status: Acute Current Visit: Yes (6) BPH (benign prostatic hyperplasia) SNOMED Code(s): 880817436 Code(s): N40.0 - BENIGN PROSTATIC HYPERPLASIA WITHOUT LOWER URINRY TRACT SYMP Status: Acute Current Visit: Yes Qualifiers: Lower urinary tract symptom presence: symptoms present (7) H/O: CVA (cerebrovascular accident) SNOMED Code(s): 049678425 Code(s): Z86.73 - PRSNL HX OF TIA (TIA), AND CEREB INFRC W/O RESID DEFICITS Status: Acute Current Visit: Yes (8) Memory deficit SNOMED Code(s): 973678700 Code(s): R41.3 - OTHER AMNESIA Status: Acute Current Visit: Yes (9) Anxiety disorder, unspecified SNOMED Code(s): 462507701 Code(s): F41.9 - ANXIETY DISORDER, UNSPECIFIED Status: Chronic Current Visit: No Qualifiers: Anxiety disorder type: unspecified anxiety disorder Qualified Code(s): F41.9 - Anxiety disorder, unspecified (10) CHF (congestive heart failure) SNOMED Code(s): 13427344 Code(s): I50.9 - HEART FAILURE, UNSPECIFIED Status: Acute Current Visit: Yes Qualifiers: Heart failure type: unspecified - Problem List Review Problem List Initiated/Reviewed/Updated: Yes - My Orders Last 24 Hours: My Active Orders 01/26/20 09:24 Patient Status [ADT] Routine Oxygen Therapy [RC] PRN Up With Assistance [RC] ASDIRECTED 01/26/20 21:00 Escitalopram [Lexapro] 10 mg PO BEDTIME Tamsulosin [Flomax] 0.4 mg PO BEDTIME 01/27/20 08:29 metOLazone [Zaroxolyn] 5 mg PO ONETIME ONE 01/27/20 08:30 CXR [Chest 2V] [CR] Routine 01/27/20 14:00 Furosemide [Lasix] 40 mg PO BIDDIURETIC 01/28/20 05:11 BASIC METABOLIC PANEL,BMP [CHEM] AM CBC WITH AUTO DIFF [HEME] AM PRO B-TYPE NATRIUR PEPT,BNPPRO [CHEM] DAILY TROPONIN I [CHEM] AM - Plan Plan:: Switch to oral meds today.DC to Assisted Living tomorrow
[2020-01-27] MEDS: Furosemide 40 MG Tab PO SCH ×2 (10:24→14:09)
[2020-01-27] MEDS: Levofloxacin/Dextrose 5%-Water 500 MG in Premix Bag 1 BAG IV SCH (11:09)
--- NOTE | 2020-01-27 11:15 | CR ---
INDICATION: Cough. CHEST, TWO VIEWS: PA and lateral views of the chest with two lateral views 01/27/20 were compared with 01/23/20 and 12/20/15. Findings compatible with COPD are again noted. Findings compatible with ASHD include mild cardiomegaly and tortuous calcified aorta. There are some patchy infiltrative changes at the posterior lung bases with pleural effusions of small size bilaterally, mostly delineated by posterior sulci that are blunted. There is somewhat peripheral appearance of the infiltration posteriorly, could be on the basis of a process such as COVID-19 pneumonia but should be correlated clinically. A mild degree of pulmonary vascular congestion is also suggested with slightly prominent upper lung field pulmonary vasculature. There may be some patchy infiltration in the right upper lung field to middle lung field area. Interstitial lung edema may also be present with slightly prominent interstitial markings. Report was called to Dr. Swan at 1045 hours. [facility]
[2020-01-27] MEDS: traZODone 50 MG Tab PO SCH (20:28)
[2020-01-27] MEDS: Escitalopram 10 MG Tab PO SCH (20:28)
[2020-01-27] MEDS: Tamsulosin 0.4 MG Cap.ER PO SCH (20:28)
[2020-01-27] MEDS: atorvaSTATin 10 MG Tab PO SCH (21:51)
[2020-01-28] MEDS: Furosemide 40 MG Tab PO SCH ×2 (08:06→14:48)
[2020-01-28] MEDS: Potassium Chloride 10 MEQ Tab.ER PO SCH (08:06)
[2020-01-28] MEDS: Carvedilol 6.25 MG Tab PO SCH ×2 (08:06→20:28)
[2020-01-28] MEDS: Multivitamin Tab PO SCH (08:06)
[2020-01-28] MEDS: Cholecalciferol (Vitamin D3) 25 MCG Tab PO SCH (08:07)
[2020-01-28] MEDS: Aspirin 81 MG Tab.Chew PO SCH (08:07)
[2020-01-28] MEDS: ALPRAZolam 0.25 MG Tab PO SCH ×2 (08:12→20:33)
--- NOTE | 2020-01-28 08:55 | PCM.PN ---
- General Info Date of Service: 01/28/20 Subjective Update: Complains of Constipation. Has lost 4 lbs since yesterday. No fever.CXR yesterday showed possible pneumonia ?COVID Functional Status: Reports: Pain Controlled - Review of Systems General: Reports: No Symptoms HEENT: Reports: No Symptoms Pulmonary: Reports: Wheezing Cardiovascular: Reports: Dyspnea on Exertion Gastrointestinal: Reports: Constipation Genitourinary: Reports: No Symptoms - Patient Data Vitals - Most Recent: Last Vital Signs Temp 98.2 F 01/28/20 00:19 Pulse 57 L 01/28/20 08:06 Resp 18 01/28/20 00:19 BP 125/59 L 01/28/20 08:06 Pulse Ox 93 L 01/28/20 00:19 Weight - Most Recent: 97.069 kg I&O - Last 24 Hours: Intake & Output 01/27/20 01/28/20 01/28/20 22:59 06:59 14:59 Intake Total 180 180 200 Output Total 1800 1125 Balance -1620 -945 200 Lab Results Last 24 Hours: Laboratory Results - last 24 hr 01/27/20 01/28/20 01/28/20 Range/Units 11:14 06:25 06:25 WBC 7.3 (4.5-12.0) X10-3/uL RBC 3.65 L (4.30-5.75) x10(6)uL Hgb 11.4 L (13.5-17.8) g/dL Hct 35.3 (30.0-51.3) % MCV 96.7 H (80-96) fL MCH 31.1 (27.7-33.6) pg MCHC 32.2 (32.2-35.4) g/dL RDW 13.1 (11.5-15.5) % Plt Count 320 (125-369) X10(3)uL MPV 8.7 (7.4-10.4) fL Neut % (Auto) 82.4 H (46-82) % Lymph % (Auto) 7.2 L (13-37) % Gregg % (Auto) 7.9 (4-12) % Eos % (Auto) 2 (1.0-5.0) % Baso % (Auto) 0 (0-2) % Neut # (Auto) 6.0 (1.6-8.3) # Lymph # (Auto) 0.5 L (0.6-5.0) # Gregg # (Auto) 0.6 (0.0-1.3) # Eos # (Auto) 0.2 (0.0-0.8) # Baso # (Auto) 0.0 (0.0-0.2) # Sodium (135-145) mmol/L Potassium (3.5-5.3) mmol/L Chloride (100-110) mmol/L Carbon Dioxide (21-32) mmol/L BUN (7-18) mg/dL Creatinine (0.70-1.30) mg/dL Est Cr Clr Drug Dosing mL/min Estimated GFR (MDRD) (>60) BUN/Creatinine Ratio (9-20) Glucose (80-116) mg/dL POC Glucose 223 H D (80-116) mg/dL Calcium (8.6-10.2) mg/dL Troponin I 1192.1 H* (4.0-60.3) pg/mL NT-Pro-B Natriuret Pep 3414 H* (<=450) pg/mL 01/28/20 Range/Units 06:25 WBC (4.5-12.0) X10-3/uL RBC (4.30-5.75) x10(6)uL Hgb (13.5-17.8) g/dL Hct (30.0-51.3) % MCV (80-96) fL MCH (27.7-33.6) pg MCHC (32.2-35.4) g/dL RDW (11.5-15.5) % Plt Count (125-369) X10(3)uL MPV (7.4-10.4) fL Neut % (Auto) (46-82) % Lymph % (Auto) (13-37) % Gregg % (Auto) (4-12) % Eos % (Auto) (1.0-5.0) % Baso % (Auto) (0-2) % Neut # (Auto) (1.6-8.3) # Lymph # (Auto) (0.6-5.0) # Gregg # (Auto) (0.0-1.3) # Eos # (Auto) (0.0-0.8) # Baso # (Auto) (0.0-0.2) # Sodium 138 (135-145) mmol/L Potassium 3.1 L (3.5-5.3) mmol/L Chloride 99 L D (100-110) mmol/L Carbon Dioxide 33 H (21-32) mmol/L BUN 29 H (7-18) mg/dL Creatinine 1.3 (0.70-1.30) mg/dL Est Cr Clr Drug Dosing 46.04 mL/min Estimated GFR (MDRD) 54 L (>60) BUN/Creatinine Ratio 22.3 H (9-20) Glucose 143 H (80-116) mg/dL POC Glucose (80-116) mg/dL Calcium 8.4 L (8.6-10.2) mg/dL Troponin I (4.0-60.3) pg/mL NT-Pro-B Natriuret Pep (<=450) pg/mL Med Orders - Current: Current Medications Albuterol/Ipratropium (Duoneb 3.0-0.5 Mg/3 Ml) 3 ml NEB QID PRN PRN Reason: Shortness of Breath Last Admin: 01/27/20 06:44 Dose: 3 ml Documented by: Alprazolam (Xanax) 0.25 mg PO BID [facility] Last Admin: 01/28/20 08:12 Dose: 0.25 mg Documented by: Aspirin (Aspirin) 81 mg PO DAILY [facility] Last Admin: 01/28/20 08:07 Dose: 81 mg Documented by: Atorvastatin Calcium (Lipitor) 10 mg PO Q24H [facility] Last Admin: 01/27/20 21:51 Dose: 10 mg Documented by: Carvedilol (Coreg) 6.25 mg PO BID [facility] Last Admin: 01/28/20 08:06 Dose: 6.25 mg Documented by: Cholecalciferol (Vitamin D3) 25 mcg PO DAILY [facility] Last Admin: 01/28/20 08:07 Dose: 25 mcg Documented by: Escitalopram Oxalate (Lexapro) 10 mg PO BEDTIME [facility] Last Admin: 01/27/20 20:28 Dose: 10 mg Documented by: Furosemide (Lasix) 40 mg PO BIDDIURETIC [facility] Last Admin: 01/28/20 08:06 Dose: 40 mg Documented by: Glipizide (Glucotrol) 10 mg PO DAILY [facility] Last Admin: 01/28/20 08:06 Dose: 10 mg Documented by: Levofloxacin/Dextrose 500 mg/ (Premix) 100 mls @ 100 mls/hr IV Q24H [facility] Last Admin: 01/27/20 11:09 Dose: 100 mls/hr Documented by: Multivitamins/Minerals/Vitamin C (Tab-A-Jazmyn) 1 tab PO DAILY [facility] Last Admin: 01/28/20 08:06 Dose: 1 tab Documented by: Potassium Chloride (Klor-Con 10) 10 meq PO DAILY [facility] Last Admin: 01/28/20 08:06 Dose: 10 meq Documented by: Sodium Chloride (Saline Flush) 10 ml FLUSH ASDIRECTED PRN PRN Reason: Keep Vein Open Last Admin: 01/27/20 07:56 Dose: 10 ml Documented by: Tamsulosin HCl (Flomax) 0.4 mg PO BEDTIME [facility] Last Admin: 01/27/20 20:28 Dose: 0.4 mg Documented by: Trazodone HCl (Trazodone) 50 mg PO BEDTIME [facility] Last Admin: 01/27/20 20:28 Dose: 50 mg Documented by: Discontinued Medications Albuterol/Ipratropium (Duoneb 3.0-0.5 Mg/3 Ml) 3 ml INH ONETIME PRN PRN Reason: Shortness Of Breath/wheezing Last Admin: 01/23/20 19:57 Dose: 3 ml Documented by: Enoxaparin Sodium (Lovenox) 150 mg SUBCUT DAILY [facility] Last Admin: 01/25/20 09:26 Dose: 150 mg Documented by: Escitalopram Oxalate (Lexapro) 10 mg PO DAILY [facility] Last Admin: 01/26/20 19:04 Dose: Not Given Documented by: Furosemide (Lasix) 20 mg PO DAILY [facility] Last Admin: 01/24/20 09:51 Dose: 20 mg Documented by: Furosemide (Lasix) 20 mg IVPUSH BIDDIURETIC [facility] Last Admin: 01/26/20 19:04 Dose: Not Given Documented by: Furosemide (Lasix) 40 mg IVPUSH BID [facility] Last Admin: 01/26/20 19:04 Dose: Not Given Documented by: Furosemide (Lasix) 40 mg IVPUSH BIDDIURETIC [facility] Last Admin: 01/27/20 07:52 Dose: 40 mg Documented by: Losartan Potassium (Cozaar) 100 mg PO DAILY [facility] Losartan Potassium (Cozaar) 100 mg PO DAILY [facility] Last Admin: 01/24/20 09:51 Dose: 100 mg Documented by: Metformin HCl (Glucophage Xr) 1,000 mg PO DAILY [facility] Last Admin: 01/24/20 09:51 Dose: 1,000 mg Documented by: Metolazone (Zaroxolyn) 5 mg PO ONETIME ONE Stop: 01/27/20 08:30 Last Admin: 01/27/20 09:06 Dose: 5 mg Documented by: Tamsulosin HCl (Flomax) 0.4 mg PO DAILY [facility] Last Admin: 01/26/20 19:04 Dose: Not Given Documented by: Ticagrelor (Brilinta) 180 mg PO ONETIME ONE Stop: 01/24/20 17:48 Last Admin: 01/24/20 18:27 Dose: 180 mg Documented by: - Exam General: Alert, Oriented HEENT: Pupils Equal Lungs: Rales Cardiovascular: Regular Rate Sepsis Event Note - Evaluation Sepsis Screening Result: No Definite Risk - Focused Exam Vital Signs: Vital Signs Temp Pulse Pulse Resp BP BP Pulse Ox 01/28/20 08:06 57 L 125/59 L 01/28/20 00:19 98.2 F 71 18 121/52 L 93 L Date Exam was Performed: 01/28/20 Time Exam was Performed: 08:52 - Problem List & Annotations (1) NSTEMI (non-ST elevated myocardial infarction) SNOMED Code(s): 21561648 Code(s): I21.4 - NON-ST ELEVATION (NSTEMI) MYOCARDIAL INFARCTION Status: Acute Current Visit: Yes (2) Elevated troponin SNOMED Code(s): 223389682, 911674534, 372773850 Code(s): R79.89 - OTHER SPECIFIED ABNORMAL FINDINGS OF BLOOD CHEMISTRY Status: Acute Current Visit: Yes (3) Malaise SNOMED Code(s): 842046320 Code(s): R53.81 - OTHER MALAISE Status: Acute Current Visit: Yes (4) Diabetes type 2, controlled SNOMED Code(s): 30061818, 150933442 Code(s): E11.9 - TYPE 2 DIABETES MELLITUS WITHOUT COMPLICATIONS Status: Acute Current Visit: Yes Qualifiers: Diabetes mellitus retirement insulin use: without buttermaker continuous churn use (5) Falls frequently SNOMED Code(s): 179808132 Code(s): R29.6 - REPEATED FALLS Status: Acute Current Visit: Yes (6) BPH (benign prostatic hyperplasia) SNOMED Code(s): 654120649 Code(s): N40.0 - BENIGN PROSTATIC HYPERPLASIA WITHOUT LOWER URINRY TRACT SYMP Status: Acute Current Visit: Yes Qualifiers: Lower urinary tract symptom presence: symptoms present (7) H/O: CVA (cerebrovascular accident) SNOMED Code(s): 436093565 Code(s): Z86.73 - PRSNL HX OF TIA (TIA), AND CEREB INFRC W/O RESID DEFICITS Status: Acute Current Visit: Yes (8) Memory deficit SNOMED Code(s): 477300997 Code(s): R41.3 - OTHER AMNESIA Status: Acute Current Visit: Yes (9) Anxiety disorder, unspecified SNOMED Code(s): 627969416 Code(s): F41.9 - ANXIETY DISORDER, UNSPECIFIED Status: Chronic Current Visit: No Qualifiers: Anxiety disorder type: unspecified anxiety disorder Qualified Code(s): F41.9 - Anxiety disorder, unspecified (10) CHF (congestive heart failure) SNOMED Code(s): 17664027 Code(s): I50.9 - HEART FAILURE, UNSPECIFIED Status: Acute Current Visit: Yes Qualifiers: Heart failure type: unspecified (11) Pneumonia SNOMED Code(s): 210104016 Code(s): J18.9 - PNEUMONIA, UNSPECIFIED ORGANISM Status: Acute Current Visit: Yes - Problem List Review Problem List Initiated/Reviewed/Updated: Yes - My Orders Last 24 Hours: My Active Orders 01/27/20 09:30 Furosemide [Lasix] 40 mg PO BIDDIURETIC 01/27/20 11:00 Levofloxacin/Dextrose 5%-Water [Levaquin in D5W 500 MG/100 ML] 500 mg Premix Bag 1 bag IV Q24H 01/28/20 08:16 CORONAVIRUS COVID-19, [facility] Stat 01/28/20 08:27 CORONAVIRUS COVID-19 [facility] [[facility]] Stat 01/29/20 05:11 BASIC METABOLIC PANEL,BMP [CHEM] AM CBC WITH AUTO DIFF [HEME] AM PRO B-TYPE NATRIUR PEPT,BNPPRO [CHEM] DAILY TROPONIN I [CHEM] AM - Plan Plan:: Treat constipation with Miralax. Test for Covid. Start Levaquin. Possible DC tomorrow to [facility].
[2020-01-28] MEDS: Levofloxacin/Dextrose 5%-Water 500 MG in Premix Bag 1 BAG IV SCH (12:27)
[2020-01-28] MEDS: Sodium Chloride 0.9% 10 ML Syringe FLUSH PRN (12:27)
[2020-01-28] MEDS: Tamsulosin 0.4 MG Cap.ER PO SCH (20:28)
[2020-01-28] MEDS: traZODone 50 MG Tab PO SCH (20:28)
[2020-01-28] MEDS: Escitalopram 10 MG Tab PO SCH (20:28)
[2020-01-28] MEDS: atorvaSTATin 10 MG Tab PO SCH (21:54)
[2020-01-29] MEDS: Furosemide 40 MG Tab PO SCH (07:57)
[2020-01-29 07:59] VITALS: BP 119/50; PULSE 64
[2020-01-29] MEDS: Potassium Chloride 10 MEQ Tab.ER PO SCH (08:01)
[2020-01-29] MEDS: Multivitamin Tab PO SCH (08:01)
[2020-01-29] MEDS: Aspirin 81 MG Tab.Chew PO SCH (08:02)
[2020-01-29] MEDS: Cholecalciferol (Vitamin D3) 25 MCG Tab PO SCH (08:02)
[2020-01-29] MEDS: ALPRAZolam 0.25 MG Tab PO SCH (08:05)
[2020-01-29] MEDS: Carvedilol 6.25 MG Tab PO SCH (08:41)
--- NOTE | 2020-01-29 09:10 | DISCH ---
DISCHARGE DATE: 01/29/2020 REASON FOR ADMISSION: 1. Fall at the halfway. 2. Anxiety. 3. Memory deficit. 4. History of cerebrovascular accident. 5. Generalized weakness and malaise. 6. Type 2 diabetes. 7. Elevated troponin. DISCHARGE DIAGNOSES: 1. Pneumonia. 2. Congestive heart failure exacerbation. 3. Non elevated ST myocardial infarction. 4. Ambulatory dysfunction. 5. History of a stroke. 6. Memory deficit. 7. Depression. 8. Anxiety. 9. BPH. 10.Type 2 diabetes. CONSULTATION: Physical Therapy. BRIEF HISTORY AND HOSPITAL COURSE: A 79-year-old male from [facility], who was brought in by ambulance after he had fallen twice at the assisted living, and the staff were unable to get him up. He complained of generalized weakness and was a poor historian. He has a previous history of type 2 diabetes, hypertension, coronary artery disease, and stroke. First examination revealed elevated troponin, although the EKG was nondiagnostic. He was found to be short of breath and an elevated BNP as well. He was treated initially with Lasix and an x-ray repeated 2 days later revealed some pneumonia. Levaquin was started. He continued to attend physical therapy, but was found to need more than 1- person assist, and as such will be discharged to swing bed to finish the course of antibiotics and continue physical rehab. I spent more than 35 minutes in discharge. /[id number] GERRY/GOLD
== END 2020-01-29 09:00 | disposition swing bed (61) | DRG 280 ==
LOC: FB.ED 14:20 → FB.MS 16:39 → OBSVTOIN 01-26 09:24
PROVIDERS: ADMIT Family Medicine; ATTEND Family Medicine
DX: I11.0 Hypertensive heart disease with heart failure (principal); R53.81 Other malaise; I21.4 Non-ST elevation (NSTEMI) myocardial infarction; J18.9 Pneumonia, unspecified organism; I50.9 Heart failure, unspecified; F32.9 Major depressive disorder, single episode, unspecified; F41.9 Anxiety disorder, unspecified; N40.0 Benign prostatic hyperplasia without lower urinary tract symptoms; E11.9 Type 2 diabetes mellitus without complications; W19.XXXA Unspecified fall, initial encounter; I25.10 Atherosclerotic heart disease of native coronary artery without angina pectoris; E78.00 Pure hypercholesterolemia, unspecified; M19.90 Unspecified osteoarthritis, unspecified site; E66.9 Obesity, unspecified; Z88.2 Allergy status to sulfonamides; Z79.82 Long term (current) use of aspirin; F03.90 Unspecified dementia, unspecified severity, without behavioral disturbance, psychotic disturbance, mood disturbance, and anxiety; Z79.84 Long term (current) use of oral hypoglycemic drugs; Z79.899 Other long term (current) drug therapy; Z86.010 Personal history of colon polyps; Z87.442 Personal history of urinary calculi; Z90.89 Acquired absence of other organs; Z90.49 Acquired absence of other specified parts of digestive tract; Z98.890 Other specified postprocedural states; Z87.891 Personal history of nicotine dependence; R29.6 Repeated falls; K59.00 Constipation, unspecified; R41.3 Other amnesia; Z86.73 Personal history of transient ischemic attack (TIA), and cerebral infarction without residual deficits; Z68.32 Body mass index [BMI] 32.0-32.9, adult; Z20.828 Contact with and (suspected) exposure to other viral communicable diseases
CPT/HCPCS: 36415; 51702; 70450; 71046; 80048; 80053; 82962; 83880; 84484; 85025; 93005; 93010; 94640; 94760; 96372; 96374; 96376; 97116-GP; 97162-GP; 97165-GO; 97530-GO; 97535-GO; 99283; 99285-25; A9270-GY; G0378; J1650; J1940; J1956; J7620-GY; U0002

== ENCOUNTER 2020-01-29 09:00 | Inpatient (IN) | payer MEDICARE ==
[2020-01-29] MEDS ORDERED: Levofloxacin 500 MG Tab PO SCH (11:00)
[2020-01-29] MEDS: Enoxaparin 30 MG/0.3 ML Syringe SUBCUT SCH (12:45)
[2020-01-29] MEDS: Furosemide 40 MG Tab PO SCH (14:51)
--- NOTE | 2020-01-29 18:18 | PCM.HP.2 ---
H&P History of Present Illness - General Date of Service: 01/29/20 Admit Problem/Dx: Admission Diagnosis/Problem Admission Diagnosis/Problem Pneumonia Source of Information: Patient History Limitations: Reports: Altered Mental Status - History of Present Illness Initial Comments - Free Text/Narative: Charlie is a 79-year-old male admitted to swing bed for generalized weakness,for rehab. He had been in the acute setting being treated for pneumonia, and NSTEMI, CHF and dementia. He's had multiple falls at [facility], and is been very weak here needing more than 2 people for assistance with activities of daily living. - Related Data Allergies/Adverse Reactions: Allergies Allergy/AdvReac Type Severity Reaction Status Date / Time Sulfa (Sulfonamide Allergy Cannot Verified 12/20/15 09:08 Antibiotics) Remember Home Medications: Home Meds Aspirin 81 mg PO DAILY 12/20/15 [History] Carvedilol [Coreg] 6.25 mg PO BID 12/20/15 [History] Escitalopram [Lexapro] 10 mg PO BEDTIME 12/20/15 [History] Losartan [Cozaar] 100 mg PO DAILY 12/20/15 [History] Potassium Chloride [Klor-Con 10] 10 meq PO DAILY 12/20/15 [History] Tamsulosin HCl [Flomax] 0.4 mg PO BEDTIME 12/20/15 [History] atorvaSTATin [Lipitor] 10 mg PO BEDTIME 12/20/15 [History] glipiZIDE [Glucotrol] 10 mg PO DAILY 12/20/15 [History] traZODone 50 mg PO BEDTIME 12/20/15 [History] Multivitamin [Multi-Vitamin Daily] 1 each PO DAILY 01/23/20 [History] metFORMIN HCl [Metformin HCl ER] 1,000 mg PO WITHDINNER 01/26/20 [History] Cholecalciferol (Vitamin D3) [Vitamin D3] 25 mcg PO DAILY tablet 01/29/20 [Rx] Furosemide [Lasix] 40 mg PO BIDDIURETIC #60 tablet 01/29/20 [Rx] Levofloxacin [Levaquin] 500 mg PO DAILY #5 tablet 01/29/20 [Rx] Past Medical History HEENT History: Reports: None Cardiovascular History: Reports: CAD, Heart Failure, High Cholesterol, Hypertension, [place] Respiratory History: Reports: SOB Gastrointestinal History: Reports: Colon Polyp, Hemorrhoids Genitourinary History: Reports: Renal Calculus Musculoskeletal History: Reports: Arthritis, Other (See Below) Other Musculoskeletal History: surgery on right arm and hand in past Neurological History: Reports: CVA Psychiatric History: Reports: Anxiety Endocrine/Metabolic History: Reports: Diabetes, Type II, Obesity/BMI 30+ Immunologic History: Reports: None Oncologic (Cancer) History: Reports: None - Infectious Disease History Infectious Disease History: Reports: Chicken Pox, Measles - Past Surgical History HEENT Surgical History: Reports: Adenoidectomy, Tonsillectomy Cardiovascular Surgical History: Reports: None GI Surgical History: Reports: Appendectomy, Colonoscopy Male Surgical History: Reports: None Endocrine Surgical History: Reports: None Neurological Surgical History: Reports: None Musculoskeletal Surgical History: Reports: None, Shoulder Surgery Dermatological Surgical History: Reports: None Social & Family History - Family History Family Medical History: Noncontributory - Caffeine Use Caffeine Use: Reports: Coffee - Recreational Drug Use Recreational Drug Use: No H&P Review of Systems - Review of Systems: Review Of Systems: Comprehensive ROS is negative, except as noted in HPI. Exam - Exam Exam: See Below - Vital Signs Vital Signs: Last Vital Signs Temp 97.1 F 01/29/20 11:29 Pulse 54 L 01/29/20 11:29 Resp 14 01/29/20 11:29 BP 102/40 L 01/29/20 11:29 Pulse Ox 97 01/29/20 11:29 Weight: 97.341 kg - Exam Quality Assessment: Supplemental Oxygen General: Alert, Mild Distress. No: Oriented HEENT: PERRLA Neck: Supple Lungs: Crackles Cardiovascular: Regular Rate GI/Abdominal Exam: Normal Bowel Sounds, Soft Back Exam: Normal Inspection Extremities: Normal Inspection Skin: Warm, Dry Neurological: Cranial Nerves Intact Neuro Extensive - Mental Status: Alert, Disorientation to Person, Disorientation to Time. No: Oriented x3 Neuro Extensive - Motor, Sensory, Reflexes: Abnormal Gait Psychiatric: Alert Sepsis Event Note - Evaluation Sepsis Screening Result: No Definite Risk - Focused Exam Vital Signs: Vital Signs Temp Pulse Resp BP Pulse Ox 01/29/20 11:29 97.1 F 54 L 14 102/40 L 97 Date Exam was Performed: 01/29/20 Time Exam was Performed: 18:14 - Problem List (1) Ambulatory dysfunction SNOMED Code(s): 157650393 ICD Code: R26.2 - DIFFICULTY IN WALKING, NOT ELSEWHERE CLASSIFIED Status: Acute Current Visit: Yes (2) Pneumonia SNOMED Code(s): 999299818 ICD Code: J18.9 - PNEUMONIA, UNSPECIFIED ORGANISM Status: Acute Current Visit: Yes Qualifiers: Pneumonia type: due to unspecified organism (3) NSTEMI (non-ST elevated myocardial infarction) SNOMED Code(s): 88164966 ICD Code: I21.4 - NON-ST ELEVATION (NSTEMI) MYOCARDIAL INFARCTION Status: Acute Current Visit: Yes (4) CHF (congestive heart failure) SNOMED Code(s): 37491967 ICD Code: I50.9 - HEART FAILURE, UNSPECIFIED Status: Chronic Current Visit: No Qualifiers: Heart failure type: systolic (5) Diabetes type 2, controlled SNOMED Code(s): 21740725, 322538764 ICD Code: E11.9 - TYPE 2 DIABETES MELLITUS WITHOUT COMPLICATIONS Status: Chronic Current Visit: No Qualifiers: Diabetes mellitus halfway insulin use: without terminal gauger use (6) Falls frequently SNOMED Code(s): 384692357 ICD Code: R29.6 - REPEATED FALLS Status: Acute Current Visit: No (7) H/O: CVA (cerebrovascular accident) SNOMED Code(s): 097420597 ICD Code: Z86.73 - PRSNL HX OF TIA (TIA), AND CEREB INFRC W/O RESID DEFICITS Status: Acute Current Visit: No (8) Memory deficit SNOMED Code(s): 886589822 ICD Code: R41.3 - OTHER AMNESIA Status: Acute Current Visit: No (9) Anxiety disorder, unspecified SNOMED Code(s): 000551004 ICD Code: F41.9 - ANXIETY DISORDER, UNSPECIFIED Status: Chronic Current Visit: No Problem List Initiated/Reviewed/Updated: Yes Orders Last 24hrs: Active Orders 24 hr Category Date Time Status Patient Status [ADT] Routine ADT 01/29/20 11:29 Active Blood Glucose Check, Bedside [] ONETIME Care 01/29/20 12:38 Active EKG Documentation Completion [RC] ASDIRECTED Care 01/29/20 12:40 Active Height and Weight [RC] WEEKLY Care 01/29/20 11:29 Active Oxygen Therapy [RC] PRN Care 01/29/20 11:29 Active Up With Assistance [RC] ASDIRECTED Care 01/29/20 11:29 Active VTE/DVT Education [RC] Per Unit Routine Care 01/29/20 11:29 Active Vital Signs [RC] PER UNIT ROUTINE Care 01/29/20 11:29 Active OT Evaluation and Treatment [CONS] Routine Cons 01/29/20 11:29 Active PT Evaluation and Treatment [CONS] Routine Cons 01/29/20 11:29 Active Consistent Carbohydrate Diet [DIET] Diet 01/29/20 Lunch Active Head wo Cont [CT] Routine Exams 01/29/20 17:27 Ordered Aspirin Med 01/30/20 09:00 Active 81 mg PO DAILY Cholecalciferol (Vitamin D3) [Vitamin D3] Med 01/30/20 09:00 Active 25 mcg PO DAILY Cholecalciferol (Vitamin D3) [Vitamin D3] Med 01/30/20 09:00 Active 25 mcg PO DAILY Enoxaparin [Lovenox] Med 01/29/20 11:30 Active 30 mg SUBCUT Q24H Escitalopram [Lexapro] Med 01/29/20 21:00 Active 10 mg PO BEDTIME Furosemide [Lasix] Med 01/29/20 14:00 Active 40 mg PO BIDDIURETIC Multivitamins [Tab-A-Jazmyn] Med 01/30/20 09:00 Active 1 tab PO DAILY Potassium Chloride [Klor-Con 10] Med 01/30/20 09:00 Active 10 meq PO DAILY Tamsulosin [Flomax] Med 01/29/20 21:00 Active 0.4 mg PO BEDTIME atorvaSTATin [Lipitor] Med 01/29/20 21:00 Active 10 mg PO BEDTIME glipiZIDE [Glucotrol] Med 01/30/20 09:00 Active 10 mg PO DAILY levoFLOXacin [Levaquin] Med 01/29/20 11:00 Active 500 mg PO DAILY@1100 metFORMIN [Glucophage XR] Med 01/29/20 18:00 Active 1,000 mg PO WITHDINNER traZODone Med 01/29/20 21:00 Active 50 mg PO BEDTIME Resuscitation Status Routine Resus Stat 01/29/20 11:29 Ordered EKG 12 Lead [EK] Routine Ther 01/29/20 12:40 Ordered Medication Orders Aspirin (Aspirin) 81 mg PO DAILY DAVID Atorvastatin Calcium (Lipitor) 10 mg PO BEDTIME DAVID Cholecalciferol (Vitamin D3) 25 mcg PO DAILY DAVID Cholecalciferol (Vitamin D3) 25 mcg PO DAILY [facility] Enoxaparin Sodium (Lovenox) 30 mg SUBCUT Q24H [facility] Last Admin: 01/29/20 12:45 Dose: 30 mg Documented by: SUZANNE Escitalopram Oxalate (Lexapro) 10 mg PO BEDTIME DAVID Furosemide (Lasix) 40 mg PO BIDDIURETIC [facility] Last Admin: 01/29/20 14:51 Dose: 40 mg Documented by: SUZANNE Glipizide (Glucotrol) 10 mg PO DAILY [facility] Levofloxacin (Levaquin) 500 mg PO DAILY@1100 [facility] Last Admin: 01/29/20 12:45 Dose: 500 mg Documented by: SUZANNE Metformin HCl (Glucophage Xr) 1,000 mg PO WITHDINNER [facility] Multivitamins/Minerals/Vitamin C (Tab-A-Jazmyn) 1 tab PO DAILY [facility] Potassium Chloride (Klor-Con 10) 10 meq PO DAILY [facility] Tamsulosin HCl (Flomax) 0.4 mg PO BEDTIME DAVID Trazodone HCl (Trazodone) 50 mg PO BEDTIME [facility] Assessment/Plan Comment:: Admit to [facility],with PT/OT. Continue Levaquin for [address] head.
[2020-01-29] MEDS: metFORMIN 500 MG Tab.ER PO SCH (18:59)
[2020-01-29] MEDS ORDERED: Carvedilol 6.25 MG Tab PO SCH (21:00)
[2020-01-29] MEDS: Tamsulosin 0.4 MG Cap.ER PO SCH (21:19)
[2020-01-29] MEDS: atorvaSTATin 10 MG Tab PO SCH (21:19)
[2020-01-29] MEDS: traZODone 50 MG Tab PO SCH (21:19)
[2020-01-29] MEDS: Escitalopram 10 MG Tab PO SCH (21:19)
[2020-01-30] MEDS: Furosemide 40 MG Tab PO SCH ×2 (08:26→14:14)
[2020-01-30] MEDS: Multivitamin Tab PO SCH (08:27)
[2020-01-30] MEDS: Cholecalciferol (Vitamin D3) 25 MCG Tab PO SCH ×2 (08:27→08:28)
[2020-01-30] MEDS: Aspirin 81 MG Tab.Chew PO SCH (08:28)
[2020-01-30] MEDS ORDERED: Losartan 100 MG Tab PO SCH (09:00)
[2020-01-30] MEDS ORDERED: Potassium Chloride 10 MEQ Tab.ER PO SCH (09:00)
[2020-01-30] MEDS ORDERED: Potassium Chloride 10 MEQ Tab.ER PO ONE (10:00)
[2020-01-30] MEDS: Enoxaparin 30 MG/0.3 ML Syringe SUBCUT SCH (11:24)
[2020-01-30] MEDS: Levofloxacin 250 MG Tab PO SCH (11:24)
[2020-01-30] MEDS: metFORMIN 500 MG Tab.ER PO SCH (17:23)
[2020-01-30] MEDS: Potassium Chloride 20 MEQ Tab.ER PO SCH (17:23)
[2020-01-30] MEDS: Escitalopram 10 MG Tab PO SCH (20:46)
[2020-01-30] MEDS: traZODone 50 MG Tab PO SCH (20:46)
[2020-01-30] MEDS: Tamsulosin 0.4 MG Cap.ER PO SCH (20:46)
[2020-01-30] MEDS: atorvaSTATin 10 MG Tab PO SCH (20:46)
[2020-01-31] MEDS: Cholecalciferol (Vitamin D3) 25 MCG Tab PO SCH ×2 (05:27→08:07)
[2020-01-31] MEDS: Potassium Chloride 20 MEQ Tab.ER PO SCH ×2 (08:05→17:19)
[2020-01-31] MEDS: Furosemide 40 MG Tab PO SCH ×2 (08:05→14:26)
[2020-01-31] MEDS: Multivitamin Tab PO SCH (08:06)
[2020-01-31] MEDS: Aspirin 81 MG Tab.Chew PO SCH (08:06)
[2020-01-31] MEDS: Enoxaparin 30 MG/0.3 ML Syringe SUBCUT SCH (11:50)
[2020-01-31] MEDS: Levofloxacin 250 MG Tab PO SCH (11:50)
[2020-01-31] MEDS: metFORMIN 500 MG Tab.ER PO SCH (17:18)
[2020-01-31] MEDS: traZODone 50 MG Tab PO SCH (20:32)
[2020-01-31] MEDS: atorvaSTATin 10 MG Tab PO SCH (20:32)
[2020-01-31] MEDS: Tamsulosin 0.4 MG Cap.ER PO SCH (20:32)
[2020-01-31] MEDS: Escitalopram 10 MG Tab PO SCH (20:32)
[2020-02-01] MEDS: Aspirin 81 MG Tab.Chew PO SCH (08:14)
[2020-02-01] MEDS: Potassium Chloride 20 MEQ Tab.ER PO SCH ×2 (08:14→18:07)
[2020-02-01] MEDS: Furosemide 40 MG Tab PO SCH ×2 (08:14→13:45)
[2020-02-01] MEDS: Multivitamin Tab PO SCH (08:15)
[2020-02-01] MEDS: Cholecalciferol (Vitamin D3) 25 MCG Tab PO SCH (08:15)
[2020-02-01] MEDS: Levofloxacin 250 MG Tab PO SCH (10:53)
[2020-02-01] MEDS: Enoxaparin 30 MG/0.3 ML Syringe SUBCUT SCH (10:53)
[2020-02-01] MEDS: metFORMIN 500 MG Tab.ER PO SCH (18:07)
[2020-02-01] MEDS: Escitalopram 10 MG Tab PO SCH (20:40)
[2020-02-01] MEDS: traZODone 50 MG Tab PO SCH (20:40)
[2020-02-01] MEDS: atorvaSTATin 10 MG Tab PO SCH (20:40)
[2020-02-01] MEDS: Tamsulosin 0.4 MG Cap.ER PO SCH (20:40)
[2020-02-02] MEDS: Aspirin 81 MG Tab.Chew PO SCH (08:15)
[2020-02-02] MEDS: Potassium Chloride 20 MEQ Tab.ER PO SCH ×2 (08:15→18:03)
[2020-02-02] MEDS: Furosemide 40 MG Tab PO SCH ×2 (08:15→13:25)
[2020-02-02] MEDS: Cholecalciferol (Vitamin D3) 25 MCG Tab PO SCH (08:16)
[2020-02-02] MEDS: Multivitamin Tab PO SCH (08:16)
[2020-02-02] MEDS: Levofloxacin 250 MG Tab PO SCH (11:05)
[2020-02-02] MEDS: Enoxaparin 30 MG/0.3 ML Syringe SUBCUT SCH (11:05)
[2020-02-02] MEDS: metFORMIN 500 MG Tab.ER PO SCH (18:01)
[2020-02-02] MEDS: atorvaSTATin 10 MG Tab PO SCH (20:27)
[2020-02-02] MEDS: Tamsulosin 0.4 MG Cap.ER PO SCH (20:27)
[2020-02-02] MEDS: traZODone 50 MG Tab PO SCH (20:28)
[2020-02-02] MEDS: Escitalopram 10 MG Tab PO SCH (20:28)
[2020-02-03] MEDS: Potassium Chloride 20 MEQ Tab.ER PO SCH ×2 (08:42→18:18)
[2020-02-03] MEDS: Cholecalciferol (Vitamin D3) 25 MCG Tab PO SCH (08:43)
[2020-02-03] MEDS: Furosemide 40 MG Tab PO SCH ×2 (08:43→15:13)
[2020-02-03] MEDS: Aspirin 81 MG Tab.Chew PO SCH (08:43)
[2020-02-03] MEDS: Multivitamin Tab PO SCH (08:43)
[2020-02-03] MEDS: Enoxaparin 30 MG/0.3 ML Syringe SUBCUT SCH (12:43)
[2020-02-03] MEDS: metFORMIN 500 MG Tab.ER PO SCH (18:18)
[2020-02-03] MEDS: atorvaSTATin 10 MG Tab PO SCH (21:09)
[2020-02-03] MEDS: traZODone 50 MG Tab PO SCH (21:09)
[2020-02-03] MEDS: Escitalopram 10 MG Tab PO SCH (21:10)
[2020-02-03] MEDS: Tamsulosin 0.4 MG Cap.ER PO SCH (21:11)
[2020-02-04] MEDS: Cholecalciferol (Vitamin D3) 25 MCG Tab PO SCH (08:16)
[2020-02-04] MEDS: Aspirin 81 MG Tab.Chew PO SCH (08:16)
[2020-02-04] MEDS: Furosemide 40 MG Tab PO SCH ×2 (08:16→13:42)
[2020-02-04] MEDS: Multivitamin Tab PO SCH (08:16)
[2020-02-04] MEDS: Potassium Chloride 20 MEQ Tab.ER PO SCH ×2 (08:16→17:33)
[2020-02-04] MEDS: Acetaminophen 325 MG Tab PO PRN ×2 (10:01→20:38)
[2020-02-04] MEDS: Albuterol/Ipratropium 3.0-0.5 MG/3 ML Neb Soln NEB PRN (10:02)
[2020-02-04] MEDS: Enoxaparin 30 MG/0.3 ML Syringe SUBCUT SCH (10:40)
[2020-02-04] MEDS: metFORMIN 500 MG Tab.ER PO SCH (17:33)
[2020-02-04] MEDS: Tamsulosin 0.4 MG Cap.ER PO SCH (20:32)
[2020-02-04] MEDS: Escitalopram 10 MG Tab PO SCH (20:32)
[2020-02-04] MEDS: atorvaSTATin 10 MG Tab PO SCH (20:33)
[2020-02-04] MEDS: traZODone 50 MG Tab PO SCH (20:33)
[2020-02-05] MEDS: Acetaminophen 325 MG Tab PO PRN ×2 (02:00→09:07)
[2020-02-05] MEDS: Potassium Chloride 20 MEQ Tab.ER PO SCH ×2 (08:29→17:35)
[2020-02-05] MEDS: Furosemide 40 MG Tab PO SCH ×2 (08:29→17:35)
[2020-02-05] MEDS: Aspirin 81 MG Tab.Chew PO SCH (08:29)
[2020-02-05] MEDS: Cholecalciferol (Vitamin D3) 25 MCG Tab PO SCH (08:30)
[2020-02-05] MEDS: Multivitamin Tab PO SCH (08:30)
[2020-02-05] MEDS: Enoxaparin 30 MG/0.3 ML Syringe SUBCUT SCH (17:34)
[2020-02-05] MEDS: metFORMIN 500 MG Tab.ER PO SCH (17:35)
[2020-02-05] MEDS: atorvaSTATin 10 MG Tab PO SCH (20:47)
[2020-02-05] MEDS: traZODone 50 MG Tab PO SCH (20:47)
[2020-02-05] MEDS: Tamsulosin 0.4 MG Cap.ER PO SCH (20:47)
[2020-02-05] MEDS: Escitalopram 10 MG Tab PO SCH (20:48)
[2020-02-06] MEDS: Acetaminophen 325 MG Tab PO PRN (00:13)
[2020-02-06] MEDS: Albuterol/Ipratropium 3.0-0.5 MG/3 ML Neb Soln NEB PRN (00:13)
[2020-02-06] MEDS: Furosemide 40 MG Tab PO SCH ×2 (08:38→14:56)
[2020-02-06] MEDS: Potassium Chloride 20 MEQ Tab.ER PO SCH ×2 (08:38→18:18)
[2020-02-06] MEDS: Aspirin 81 MG Tab.Chew PO SCH (08:38)
[2020-02-06] MEDS: Cholecalciferol (Vitamin D3) 25 MCG Tab PO SCH (08:39)
[2020-02-06] MEDS: Multivitamin Tab PO SCH (08:39)
--- NOTE | 2020-02-06 10:17 | PCM.PN ---
- General Info Date of Service: 02/06/20 Admission Dx/Problem (Free Text): Asked to see patient today for complaint of left rib pain and left knee pain which is new. Does not report any falls, he's been in hospital on acute side since 01/22, moved to swing bed on 01/28. Had 3 episodes of diarrhea yesterday after lunch but nothing since then. He doesn't remember what he ate for lunch, but had no problem with dinner. States he is dizzy with ringing in his ears this morning when he is sitting. - Patient Data Vitals - Most Recent: Last Vital Signs Temp 97.4 F 02/05/20 08:00 Pulse 77 02/06/20 00:15 Resp 18 02/05/20 08:00 BP 100/50 L 02/05/20 08:00 Pulse Ox 95 02/06/20 00:15 Weight - Most Recent: 211 lb 9.6 oz Lab Results Last 24 Hours: Laboratory Results - last 24 hr 02/05/20 02/05/20 Range/Units 06:27 17:27 POC Glucose 117 H 136 H (80-116) mg/dL Med Orders - Current: Current Medications Acetaminophen (Tylenol) 650 mg PO Q4H PRN PRN Reason: Breakthrough Pain Last Admin: 02/06/20 00:13 Dose: 650 mg Documented by: Albuterol/Ipratropium (Duoneb 3.0-0.5 Mg/3 Ml) 3 ml NEB Q4H PRN PRN Reason: Wheezing Last Admin: 02/06/20 00:13 Dose: 3 ml Documented by: Aspirin (Aspirin) 81 mg PO DAILY [facility] Last Admin: 02/06/20 08:38 Dose: 81 mg Documented by: Atorvastatin Calcium (Lipitor) 10 mg PO BEDTIME DAVID Last Admin: 02/05/20 20:47 Dose: 10 mg Documented by: Cholecalciferol (Vitamin D3) 25 mcg PO DAILY [facility] Last Admin: 02/06/20 08:39 Dose: 25 mcg Documented by: Enoxaparin Sodium (Lovenox) 30 mg SUBCUT Q24H [facility] Last Admin: 02/05/20 17:34 Dose: 30 mg Documented by: Escitalopram Oxalate (Lexapro) 10 mg PO BEDTIME [facility] Last Admin: 02/05/20 20:48 Dose: 10 mg Documented by: Furosemide (Lasix) 40 mg PO BIDDIURETIC [facility] Last Admin: 02/06/20 08:38 Dose: 40 mg Documented by: Glipizide (Glucotrol) 10 mg PO DAILY [facility] Last Admin: 02/06/20 08:38 Dose: 10 mg Documented by: Metformin HCl (Glucophage Xr) 1,000 mg PO WITHDINNER [facility] Last Admin: 02/05/20 17:35 Dose: 1,000 mg Documented by: Multivitamins/Minerals/Vitamin C (Tab-A-Jazmyn) 1 tab PO DAILY [facility] Last Admin: 02/06/20 08:39 Dose: 1 tab Documented by: Potassium Chloride (Klor-Con M20) 20 meq PO BIDMEALS [facility] Last Admin: 02/06/20 08:38 Dose: 20 meq Documented by: Tamsulosin HCl (Flomax) 0.4 mg PO BEDTIME [facility] Last Admin: 02/05/20 20:47 Dose: 0.4 mg Documented by: Trazodone HCl (Trazodone) 50 mg PO BEDTIME [facility] Last Admin: 02/05/20 20:47 Dose: 50 mg Documented by: Discontinued Medications Carvedilol (Coreg) 6.25 mg PO BID [facility] Cholecalciferol (Vitamin D3) 25 mcg PO DAILY [facility] Last Admin: 01/31/20 05:27 Dose: Not Given Documented by: Levofloxacin (Levaquin) 500 mg PO DAILY@1100 [facility] Last Admin: 01/29/20 12:45 Dose: 500 mg Documented by: Levofloxacin (Levaquin) 250 mg PO DAILY@1100 [facility] Stop: 02/02/20 11:01 Last Admin: 02/02/20 11:05 Dose: 250 mg Documented by: Losartan Potassium (Cozaar) 100 mg PO DAILY [facility] Potassium Chloride (Klor-Con 10) 10 meq PO DAILY [facility] Last Admin: 01/30/20 08:27 Dose: 10 meq Documented by: Potassium Chloride (Klor-Con 10) 10 meq PO ONETIME ONE Stop: 01/30/20 10:01 Last Admin: 01/30/20 11:23 Dose: 10 meq Documented by: - Exam General: Alert, Cooperative, No Acute Distress Lungs: Clear to Auscultation, Decreased Breath Sounds (BLL), Other (TTP over left 7th & 8th lateral ribs, no step-offs noted.). No: Crackles, Rhonchi, Wheezing Cardiovascular: Regular Rate, Regular Rhythm GI/Abdominal Exam: Normal Bowel Sounds, Soft, Non-Tender, No Distention Extremities: Normal Inspection (left knee), Normal Range of Motion (left knee), No Pedal Edema, Other (TTP along lateral joint line). No: Joint Swelling, Increased Warmth, Redness Peripheral Pulses: 2+: Radial (L), Radial (R), Dorsalis Pedis (L), Dorsalis Ped is (R) Sepsis Event Note - Evaluation Sepsis Screening Result: No Definite Risk - Focused Exam Vital Signs: Vital Signs Pulse Pulse Ox 02/06/20 00:15 77 95 Date Exam was Performed: 02/06/20 Time Exam was Performed: 10:23 - Problem List & Annotations (1) Rib pain on left side SNOMED Code(s): 483298531 Code(s): R07.81 - PLEURODYNIA Status: Acute Current Visit: Yes (2) Left knee pain SNOMED Code(s): 67150166 Code(s): M25.562 - PAIN IN LEFT KNEE Status: Acute Current Visit: Yes (3) Ambulatory dysfunction SNOMED Code(s): 526879860 Code(s): R26.2 - DIFFICULTY IN WALKING, NOT ELSEWHERE CLASSIFIED Status: Acute Current Visit: Yes (4) NSTEMI (non-ST elevated myocardial infarction) SNOMED Code(s): 54884705 Code(s): I21.4 - NON-ST ELEVATION (NSTEMI) MYOCARDIAL INFARCTION Status: Acute Current Visit: Yes (5) Falls frequently SNOMED Code(s): 627095277 Code(s): R29.6 - REPEATED FALLS Status: Acute Current Visit: No (6) H/O: CVA (cerebrovascular accident) SNOMED Code(s): 503921240 Code(s): Z86.73 - PRSNL HX OF TIA (TIA), AND CEREB INFRC W/O RESID DEFICITS Status: Chronic Current Visit: No (7) Memory deficit SNOMED Code(s): 049665906 Code(s): R41.3 - OTHER AMNESIA Status: Chronic Current Visit: No (8) Anxiety disorder, unspecified SNOMED Code(s): 062869269 Code(s): F41.9 - ANXIETY DISORDER, UNSPECIFIED Status: Chronic Current Visit: No (9) CHF (congestive heart failure) SNOMED Code(s): 51027608 Code(s): I50.9 - HEART FAILURE, UNSPECIFIED Status: Chronic Current Visit: No Qualifiers: Heart failure type: systolic (10) Diabetes type 2, controlled SNOMED Code(s): 58289687, 607756737 Code(s): E11.9 - TYPE 2 DIABETES MELLITUS WITHOUT COMPLICATIONS Status: Chronic Current Visit: No Qualifiers: Diabetes mellitus fpc insulin use: without long term care administrator use - Problem List Review Problem List Initiated/Reviewed/Updated: Yes - My Orders Last 24 Hours: My Active Orders 02/06/20 10:11 Knee 3V Lt [CR] Routine 02/06/20 10:12 Ribs 2V w Chest Lt [CR] Routine - Plan Plan:: 1. He has completed his Levaquin course. 2. Left rib x-ray with chest and left knee x-ray, will adjust treatments once studies reviewed. 3. Continue to monitor for diarrhea/dizziness.
[2020-02-06] MEDS: Enoxaparin 30 MG/0.3 ML Syringe SUBCUT SCH (11:46)
[2020-02-06] MEDS: Acetaminophen 500 MG Tab PO SCH ×2 (14:56→20:08)
[2020-02-06] MEDS: Ibuprofen 200 MG Tab PO SCH ×2 (14:56→20:08)
[2020-02-06] MEDS: metFORMIN 500 MG Tab.ER PO SCH (18:19)
[2020-02-06] MEDS: traZODone 50 MG Tab PO SCH (20:08)
[2020-02-06] MEDS: Escitalopram 10 MG Tab PO SCH (20:08)
[2020-02-06] MEDS: Tamsulosin 0.4 MG Cap.ER PO SCH (20:08)
[2020-02-06] MEDS: atorvaSTATin 10 MG Tab PO SCH (20:08)
[2020-02-07] MEDS: Acetaminophen 500 MG Tab PO SCH ×4 (01:55→20:43)
[2020-02-07] MEDS: Ibuprofen 200 MG Tab PO SCH ×4 (01:55→20:42)
[2020-02-07] MEDS: Potassium Chloride 20 MEQ Tab.ER PO SCH ×2 (08:17→18:25)
[2020-02-07] MEDS: Furosemide 40 MG Tab PO SCH ×2 (08:18→14:03)
[2020-02-07] MEDS: Aspirin 81 MG Tab.Chew PO SCH (08:19)
[2020-02-07] MEDS: Cholecalciferol (Vitamin D3) 25 MCG Tab PO SCH (08:19)
[2020-02-07] MEDS: Multivitamin Tab PO SCH (08:19)
[2020-02-07] MEDS: Enoxaparin 30 MG/0.3 ML Syringe SUBCUT SCH (11:48)
[2020-02-07] MEDS: metFORMIN 500 MG Tab.ER PO SCH (18:25)
[2020-02-07] MEDS: Tamsulosin 0.4 MG Cap.ER PO SCH (20:43)
[2020-02-07] MEDS: traZODone 50 MG Tab PO SCH (20:43)
[2020-02-07] MEDS: atorvaSTATin 10 MG Tab PO SCH (20:43)
[2020-02-07] MEDS: Escitalopram 10 MG Tab PO SCH (20:43)
[2020-02-08] MEDS: Acetaminophen 500 MG Tab PO SCH ×4 (01:00→20:12)
[2020-02-08] MEDS: Ibuprofen 200 MG Tab PO SCH ×4 (01:00→20:12)
[2020-02-08] MEDS: Furosemide 40 MG Tab PO SCH ×2 (08:23→14:15)
[2020-02-08] MEDS: Potassium Chloride 20 MEQ Tab.ER PO SCH ×2 (08:23→18:07)
[2020-02-08] MEDS: Aspirin 81 MG Tab.Chew PO SCH (08:24)
[2020-02-08] MEDS: Multivitamin Tab PO SCH (08:24)
[2020-02-08] MEDS: Cholecalciferol (Vitamin D3) 25 MCG Tab PO SCH (08:25)
[2020-02-08] MEDS: Enoxaparin 30 MG/0.3 ML Syringe SUBCUT SCH (12:03)
[2020-02-08] MEDS: metFORMIN 500 MG Tab.ER PO SCH (18:06)
[2020-02-08] MEDS: atorvaSTATin 10 MG Tab PO SCH (20:12)
[2020-02-08] MEDS: traZODone 50 MG Tab PO SCH (20:12)
[2020-02-08] MEDS: Escitalopram 10 MG Tab PO SCH (20:12)
[2020-02-08] MEDS: Tamsulosin 0.4 MG Cap.ER PO SCH (20:12)
[2020-02-09] MEDS: Acetaminophen 500 MG Tab PO SCH ×4 (01:20→20:53)
[2020-02-09] MEDS: Ibuprofen 200 MG Tab PO SCH ×2 (01:20→11:54)
[2020-02-09] MEDS: Potassium Chloride 20 MEQ Tab.ER PO SCH ×2 (08:38→17:55)
[2020-02-09] MEDS: Furosemide 40 MG Tab PO SCH ×2 (08:38→13:57)
[2020-02-09] MEDS: Aspirin 81 MG Tab.Chew PO SCH (08:39)
[2020-02-09] MEDS: Multivitamin Tab PO SCH (08:40)
[2020-02-09] MEDS: Cholecalciferol (Vitamin D3) 25 MCG Tab PO SCH (08:40)
[2020-02-09] MEDS: Meloxicam 7.5 MG Tab PO SCH (09:31)
[2020-02-09] MEDS: Enoxaparin 30 MG/0.3 ML Syringe SUBCUT SCH (12:19)
--- NOTE | 2020-02-09 16:50 | PCM.PN ---
- General Info Date of Service: 02/09/20 Admission Dx/Problem (Free Text): Charlie was found to have 9th left rib fracture on Sunday, did Tylenol/Ibuprofen scheduled for pain, helped at rest but worse with movement so stopped Ibuprofen and started Meloxicam 7.5 mg. Orthostatic blood pressures today with OT were normal. Had another diarrhea episode today, he is on Metformin for Diabetes. Dizzy occasionally when sitting. - Patient Data Vitals - Most Recent: Last Vital Signs Temp 98.1 F 02/09/20 11:15 Pulse 76 02/09/20 11:15 Resp 18 02/09/20 11:15 BP 114/55 L 02/09/20 11:15 Pulse Ox 92 L 02/09/20 11:15 Weight - Most Recent: 211 lb 9.6 oz Lab Results Last 24 Hours: Laboratory Results - last 24 hr 02/09/20 Range/Units 05:51 POC Glucose 109 (80-116) mg/dL Med Orders - Current: Current Medications Acetaminophen (Tylenol Extra Strength) 500 mg PO Q6H [facility] Last Admin: 02/09/20 13:57 Dose: 500 mg Documented by: Albuterol/Ipratropium (Duoneb 3.0-0.5 Mg/3 Ml) 3 ml NEB Q4H PRN PRN Reason: Wheezing Last Admin: 02/06/20 00:13 Dose: 3 ml Documented by: Aspirin (Aspirin) 81 mg PO DAILY [facility] Last Admin: 02/09/20 08:39 Dose: 81 mg Documented by: Atorvastatin Calcium (Lipitor) 10 mg PO BEDTIME [facility] Last Admin: 02/08/20 20:12 Dose: 10 mg Documented by: Cholecalciferol (Vitamin D3) 25 mcg PO DAILY [facility] Last Admin: 02/09/20 08:40 Dose: 25 mcg Documented by: Enoxaparin Sodium (Lovenox) 30 mg SUBCUT Q24H [facility] Last Admin: 02/09/20 12:19 Dose: 30 mg Documented by: Escitalopram Oxalate (Lexapro) 10 mg PO BEDTIME [facility] Last Admin: 02/08/20 20:12 Dose: 10 mg Documented by: Furosemide (Lasix) 40 mg PO BIDDIURETIC [facility] Last Admin: 02/09/20 13:57 Dose: 40 mg Documented by: Glipizide (Glucotrol) 10 mg PO DAILY [facility] Last Admin: 02/09/20 08:39 Dose: 10 mg Documented by: Meloxicam (Mobic) 7.5 mg PO DAILY [facility] Last Admin: 02/09/20 09:31 Dose: 7.5 mg Documented by: Multivitamins/Minerals/Vitamin C (Tab-A-Jazmyn) 1 tab PO DAILY [facility] Last Admin: 02/09/20 08:40 Dose: 1 tab Documented by: Potassium Chloride (Klor-Con M20) 20 meq PO BIDMEALS [facility] Last Admin: 02/09/20 08:38 Dose: 20 meq Documented by: Tamsulosin HCl (Flomax) 0.4 mg PO BEDTIME [facility] Last Admin: 02/08/20 20:12 Dose: 0.4 mg Documented by: Trazodone HCl (Trazodone) 50 mg PO BEDTIME [facility] Last Admin: 02/08/20 20:12 Dose: 50 mg Documented by: Discontinued Medications Acetaminophen (Tylenol) 650 mg PO Q4H PRN PRN Reason: Breakthrough Pain Last Admin: 02/06/20 00:13 Dose: 650 mg Documented by: Carvedilol (Coreg) 6.25 mg PO BID [facility] Cholecalciferol (Vitamin D3) 25 mcg PO DAILY [facility] Last Admin: 01/31/20 05:27 Dose: Not Given Documented by: Ibuprofen (Motrin) 200 mg PO Q6H [facility] Last Admin: 02/09/20 11:54 Dose: Not Given Documented by: Levofloxacin (Levaquin) 500 mg PO DAILY@1100 [facility] Last Admin: 01/29/20 12:45 Dose: 500 mg Documented by: Levofloxacin (Levaquin) 250 mg PO DAILY@1100 [facility] Stop: 02/02/20 11:01 Last Admin: 02/02/20 11:05 Dose: 250 mg Documented by: Losartan Potassium (Cozaar) 100 mg PO DAILY [facility] Metformin HCl (Glucophage Xr) 1,000 mg PO WITHDINNER [facility] Last Admin: 02/08/20 18:06 Dose: 1,000 mg Documented by: Potassium Chloride (Klor-Con 10) 10 meq PO DAILY [facility] Last Admin: 01/30/20 08:27 Dose: 10 meq Documented by: Potassium Chloride (Klor-Con 10) 10 meq PO ONETIME ONE Stop: 01/30/20 10:01 Last Admin: 07/10/20 11:23 Dose: 10 meq Documented by: - Exam General: Alert, Oriented (x3), Cooperative, No Acute Distress Lungs: Clear to Auscultation, Normal Respiratory Effort, Decreased Breath Sounds (LLL). No: Crackles, Rales, Wheezing Cardiovascular: Regular Rate, Regular Rhythm GI/Abdominal Exam: Normal Bowel Sounds, Soft, Non-Tender, No Distention Sepsis Event Note - Evaluation Sepsis Screening Result: No Definite Risk - Focused Exam Vital Signs: Vital Signs Temp Pulse Resp BP Pulse Ox Pulse Ox 02/09/20 11:15 98.1 F 76 18 114/55 L 92 L 02/09/20 09:00 92 L 02/09/20 06:59 98.1 F 84 16 125/68 96 Date Exam was Performed: 02/09/20 Time Exam was Performed: 16:40 - Problem List & Annotations (1) Rib pain on left side SNOMED Code(s): 402529274 Code(s): R07.81 - PLEURODYNIA Status: Acute Current Visit: Yes (2) Left knee pain SNOMED Code(s): 41130936 Code(s): M25.562 - PAIN IN LEFT KNEE Status: Acute Current Visit: Yes (3) Ambulatory dysfunction SNOMED Code(s): 888738493 Code(s): R26.2 - DIFFICULTY IN WALKING, NOT ELSEWHERE CLASSIFIED Status: Acute Current Visit: Yes (4) NSTEMI (non-ST elevated myocardial infarction) SNOMED Code(s): 39751725 Code(s): I21.4 - NON-ST ELEVATION (NSTEMI) MYOCARDIAL INFARCTION Status: Acute Current Visit: Yes (5) Falls frequently SNOMED Code(s): 560090487 Code(s): R29.6 - REPEATED FALLS Status: Acute Current Visit: No (6) H/O: CVA (cerebrovascular accident) SNOMED Code(s): 104960407 Code(s): Z86.73 - PRSNL HX OF TIA (TIA), AND CEREB INFRC W/O RESID DEFICITS Status: Chronic Current Visit: No (7) Memory deficit SNOMED Code(s): 586475136 Code(s): R41.3 - OTHER AMNESIA Status: Chronic Current Visit: No (8) Anxiety disorder, unspecified SNOMED Code(s): 473178995 Code(s): F41.9 - ANXIETY DISORDER, UNSPECIFIED Status: Chronic Current Visit: No (9) CHF (congestive heart failure) SNOMED Code(s): 66236895 Code(s): I50.9 - HEART FAILURE, UNSPECIFIED Status: Chronic Current Visit: No Qualifiers: Heart failure type: systolic (10) Diabetes type 2, controlled SNOMED Code(s): 27106124, 452487831 Code(s): E11.9 - TYPE 2 DIABETES MELLITUS WITHOUT COMPLICATIONS Status: Chronic Current Visit: No Qualifiers: Diabetes mellitus mcfp insulin use: without mcfp use (11) Left rib fracture SNOMED Code(s): 74677486 Code(s): S22.32XA - FRACTURE OF ONE RIB, LEFT SIDE, INIT FOR CLOS FX Status: Acute Current Visit: Yes (12) Osteoarthritis of left knee SNOMED Code(s): 421695125415560 Code(s): M17.12 - UNILATERAL PRIMARY OSTEOARTHRITIS, LEFT KNEE Status: Chronic Current Visit: Yes - Problem List Review Problem List Initiated/Reviewed/Updated: Yes - My Orders Last 24 Hours: My Active Orders 02/09/20 09:00 Meloxicam [Mobic] 7.5 mg PO DAILY - Plan Plan:: 1. Progressing with PT/OT, care conference today, possibly going back to [facility] on [facility], [facility]. 2. Left rib x-ray with chest and left knee x-ray, showed left 9th rib fracture and osteoarthritis on knee x-ray, declined steroid injection, wanted to try oral, did Tylenol/Ibuprofen initially, helped pain at rest but not with activity. Stopped Ibuprofen and started Meloxicam 7.5 mg daily today. Did well with PT/OT. 3. On Metformin, most likely medication he is on that could be causing diarrhea, also with his kidney function he should not be on Metformin anyway. On Glipizide, will continue for his diabetes.
[2020-02-09] MEDS: Tamsulosin 0.4 MG Cap.ER PO SCH (20:53)
[2020-02-09] MEDS: Escitalopram 10 MG Tab PO SCH (20:54)
[2020-02-09] MEDS: atorvaSTATin 10 MG Tab PO SCH (20:54)
[2020-02-09] MEDS: traZODone 50 MG Tab PO SCH (20:54)
[2020-02-10] MEDS: Acetaminophen 500 MG Tab PO SCH ×4 (01:27→20:15)
[2020-02-10] MEDS: Furosemide 40 MG Tab PO SCH ×2 (08:16→13:18)
[2020-02-10] MEDS: Potassium Chloride 20 MEQ Tab.ER PO SCH ×2 (08:16→17:34)
[2020-02-10] MEDS: Cholecalciferol (Vitamin D3) 25 MCG Tab PO SCH (08:17)
[2020-02-10] MEDS: Multivitamin Tab PO SCH (08:17)
[2020-02-10] MEDS: Aspirin 81 MG Tab.Chew PO SCH (08:17)
[2020-02-10] MEDS: Meloxicam 7.5 MG Tab PO SCH (08:17)
[2020-02-10] MEDS: Enoxaparin 30 MG/0.3 ML Syringe SUBCUT SCH (10:33)
[2020-02-10] MEDS: traZODone 50 MG Tab PO SCH (20:15)
[2020-02-10] MEDS: Tamsulosin 0.4 MG Cap.ER PO SCH (20:15)
[2020-02-10] MEDS: atorvaSTATin 10 MG Tab PO SCH (20:15)
[2020-02-10] MEDS: Escitalopram 10 MG Tab PO SCH (20:15)
[2020-02-11] MEDS: Acetaminophen 500 MG Tab PO SCH ×4 (01:13→19:36)
[2020-02-11] MEDS: Potassium Chloride 20 MEQ Tab.ER PO SCH ×2 (08:14→17:27)
[2020-02-11] MEDS: Furosemide 40 MG Tab PO SCH ×2 (08:15→14:23)
[2020-02-11] MEDS: Aspirin 81 MG Tab.Chew PO SCH (08:16)
[2020-02-11] MEDS: Meloxicam 7.5 MG Tab PO SCH (08:17)
[2020-02-11] MEDS: Multivitamin Tab PO SCH (08:17)
[2020-02-11] MEDS: Cholecalciferol (Vitamin D3) 25 MCG Tab PO SCH (08:19)
[2020-02-11] MEDS: Enoxaparin 30 MG/0.3 ML Syringe SUBCUT SCH (11:26)
--- NOTE | 2020-02-11 15:11 | PCM.SN.2 ---
- Free Text/Narrative Note: We had another care conference today in regards to Don's discharge, plan on Sunday's care conference was discharge home on Sunday. [facility] will not be able to get [employer] and assistance services set up for him until Sunday. PT/OT were concerned as he has good and bad sessions, some he does everything independently and other sessions he can't do anything. He is independent in his room and using motorized wheelchair outside his room, verified by [facility] staff on the call. So discharge changed to Sunday as [facility] will not have things in place for a safe discharge until then.
[2020-02-11] MEDS: Tamsulosin 0.4 MG Cap.ER PO SCH (21:15)
[2020-02-11] MEDS: atorvaSTATin 10 MG Tab PO SCH (21:16)
[2020-02-11] MEDS: Escitalopram 10 MG Tab PO SCH (21:16)
[2020-02-11] MEDS: traZODone 50 MG Tab PO SCH (21:16)
[2020-02-12] MEDS: Acetaminophen 500 MG Tab PO SCH ×4 (01:18→19:39)
[2020-02-12] MEDS: Potassium Chloride 20 MEQ Tab.ER PO SCH ×2 (08:26→18:45)
[2020-02-12] MEDS: Aspirin 81 MG Tab.Chew PO SCH (08:27)
[2020-02-12] MEDS: Furosemide 40 MG Tab PO SCH ×2 (08:27→13:37)
[2020-02-12] MEDS: Meloxicam 7.5 MG Tab PO SCH (08:28)
[2020-02-12] MEDS: Multivitamin Tab PO SCH (08:28)
[2020-02-12] MEDS: Cholecalciferol (Vitamin D3) 25 MCG Tab PO SCH (08:29)
[2020-02-12] MEDS: Enoxaparin 30 MG/0.3 ML Syringe SUBCUT SCH (13:35)
[2020-02-12] MEDS: Trolamine Salicylate/Aloe Vera 10% Crm 85 GM Tube TOP PRN (17:15)
[2020-02-12] MEDS: traZODone 50 MG Tab PO SCH (20:24)
[2020-02-12] MEDS: atorvaSTATin 10 MG Tab PO SCH (20:24)
[2020-02-12] MEDS: Escitalopram 10 MG Tab PO SCH (20:24)
[2020-02-12] MEDS: Tamsulosin 0.4 MG Cap.ER PO SCH (20:24)
[2020-02-13] MEDS: Acetaminophen 500 MG Tab PO SCH ×4 (01:18→19:57)
[2020-02-13] MEDS: Furosemide 40 MG Tab PO SCH ×2 (08:24→14:26)
[2020-02-13] MEDS: Potassium Chloride 20 MEQ Tab.ER PO SCH ×2 (08:24→17:10)
[2020-02-13] MEDS: Meloxicam 7.5 MG Tab PO SCH (08:25)
[2020-02-13] MEDS: Cholecalciferol (Vitamin D3) 25 MCG Tab PO SCH (08:25)
[2020-02-13] MEDS: Multivitamin Tab PO SCH (08:25)
[2020-02-13] MEDS: Aspirin 81 MG Tab.Chew PO SCH (08:25)
[2020-02-13] MEDS: Enoxaparin 30 MG/0.3 ML Syringe SUBCUT SCH (12:38)
[2020-02-13] MEDS: Escitalopram 10 MG Tab PO SCH (19:59)
[2020-02-13] MEDS: atorvaSTATin 10 MG Tab PO SCH (19:59)
[2020-02-13] MEDS: traZODone 50 MG Tab PO SCH (19:59)
[2020-02-13] MEDS: Tamsulosin 0.4 MG Cap.ER PO SCH (19:59)
[2020-02-14] MEDS: Acetaminophen 500 MG Tab PO SCH ×4 (01:34→20:12)
[2020-02-14] MEDS: Trolamine Salicylate/Aloe Vera 10% Crm 85 GM Tube TOP PRN (01:37)
--- NOTE | 2020-02-14 07:40 | PCM.PN ---
- General Info Date of Service: 02/14/20 Admission Dx/Problem (Free Text): The nurses report the patient is not walking is good as he was before he came in. He's having left knee pain. He says he has known arthritis and is always hurts. He had a x-ray that showed DJD. Pain is worse when he walks. He says at home he uses some ibuprofen which helps. - Patient Data Vitals - Most Recent: Last Vital Signs Temp 98.4 F 02/13/20 08:00 Pulse 80 02/13/20 08:00 Resp 18 02/13/20 08:00 BP 118/54 L 02/13/20 08:00 Pulse Ox 98 02/13/20 09:00 Weight - Most Recent: 208 lb 8 oz Lab Results Last 24 Hours: Laboratory Results - last 24 hr 02/13/20 02/14/20 Range/Units 16:26 06:37 POC Glucose 231 H D 140 H D (80-116) mg/dL Med Orders - Current: Current Medications Acetaminophen (Tylenol Extra Strength) 1,000 mg PO TID REPLACED BY [facility] Albuterol/Ipratropium (Duoneb 3.0-0.5 Mg/3 Ml) 3 ml NEB Q4H PRN PRN Reason: Wheezing Last Admin: 02/06/20 00:13 Dose: 3 ml Documented by: Aspirin (Aspirin) 81 mg PO DAILY REPLACED BY [facility] Last Admin: 02/13/20 08:25 Dose: 81 mg Documented by: Atorvastatin Calcium (Lipitor) 10 mg PO BEDTIME REPLACED BY [facility] Last Admin: 02/13/20 19:59 Dose: 10 mg Documented by: Cholecalciferol (Vitamin D3) 25 mcg PO DAILY REPLACED BY [facility] Last Admin: 02/13/20 08:25 Dose: 25 mcg Documented by: Diclofenac Sodium (Voltaren 1% Gel) 1 gm TOP QID REPLACED BY [facility] Enoxaparin Sodium (Lovenox) 30 mg SUBCUT Q24H REPLACED BY [facility] Last Admin: 02/13/20 12:38 Dose: 30 mg Documented by: Escitalopram Oxalate (Lexapro) 10 mg PO BEDTIME REPLACED BY [facility] Last Admin: 02/13/20 19:59 Dose: 10 mg Documented by: Furosemide (Lasix) 40 mg PO BIDDIURETIC REPLACED BY [facility] Last Admin: 02/13/20 14:26 Dose: 40 mg Documented by: Glipizide (Glucotrol) 10 mg PO DAILY REPLACED BY [facility] Last Admin: 02/13/20 08:25 Dose: 10 mg Documented by: Meloxicam (Mobic) 7.5 mg PO DAILY REPLACED BY [facility] Last Admin: 02/13/20 08:25 Dose: 7.5 mg Documented by: Multivitamins/Minerals/Vitamin C (Tab-A-Jazmyn) 1 tab PO DAILY REPLACED BY [facility] Last Admin: 02/13/20 08:25 Dose: 1 tab Documented by: Potassium Chloride (Klor-Con M20) 20 meq PO BIDMEALS REPLACED BY [facility] Last Admin: 02/13/20 17:10 Dose: 20 meq Documented by: Tamsulosin HCl (Flomax) 0.4 mg PO BEDTIME REPLACED BY [facility] Last Admin: 02/13/20 19:59 Dose: 0.4 mg Documented by: Trazodone HCl (Trazodone) 50 mg PO BEDTIME REPLACED BY [facility] Last Admin: 02/13/20 19:59 Dose: 50 mg Documented by: Trolamine Salicylate (Aspercreme 10%) 0 gm TOP Q4H PRN PRN Reason: Pain Last Admin: 02/14/20 01:37 Dose: 1 applic Documented by: Discontinued Medications Acetaminophen (Tylenol) 650 mg PO Q4H PRN PRN Reason: Breakthrough Pain Last Admin: 02/06/20 00:13 Dose: 650 mg Documented by: Acetaminophen (Tylenol Extra Strength) 500 mg PO Q6H REPLACED BY [facility] Last Admin: 02/14/20 01:34 Dose: 500 mg Documented by: Carvedilol (Coreg) 6.25 mg PO BID REPLACED BY [facility] Cholecalciferol (Vitamin D3) 25 mcg PO DAILY REPLACED BY [facility] Last Admin: 01/31/20 05:27 Dose: Not Given Documented by: Ibuprofen (Motrin) 200 mg PO Q6H REPLACED BY [facility] Last Admin: 02/09/20 11:54 Dose: Not Given Documented by: Levofloxacin (Levaquin) 500 mg PO DAILY@1100 REPLACED BY [facility] Last Admin: 01/29/20 12:45 Dose: 500 mg Documented by: Levofloxacin (Levaquin) 250 mg PO DAILY@1100 REPLACED BY [facility] Stop: 02/02/20 11:01 Last Admin: 02/02/20 11:05 Dose: 250 mg Documented by: Losartan Potassium (Cozaar) 100 mg PO DAILY REPLACED BY [facility] Metformin HCl (Glucophage Xr) 1,000 mg PO WITHDINNER REPLACED BY [facility] Last Admin: 02/08/20 18:06 Dose: 1,000 mg Documented by: Potassium Chloride (Klor-Con 10) 10 meq PO DAILY [facility] Last Admin: 01/30/20 08:27 Dose: 10 meq Documented by: Potassium Chloride (Klor-Con 10) 10 meq PO ONETIME ONE Stop: 01/30/20 10:01 Last Admin: 01/30/20 11:23 Dose: 10 meq Documented by: - Exam General: Alert, Oriented Extremities: Other (Left knee-he has pain on the medial joint line. Normal range of motion.) Sepsis Event Note - Evaluation Sepsis Screening Result: No Definite Risk - Focused Exam Date Exam was Performed: 02/14/20 Time Exam was Performed: 07:38 - Problem List & Annotations (1) Osteoarthritis of left knee SNOMED Code(s): 143749732881846 Code(s): M17.12 - UNILATERAL PRIMARY OSTEOARTHRITIS, LEFT KNEE Status: Chronic Current Visit: Yes - Problem List Review Problem List Initiated/Reviewed/Updated: Yes - My Orders Last 24 Hours: My Active Orders 02/14/20 09:00 Acetaminophen [Tylenol Extra Strength] 1,000 mg PO TID Diclofenac Sodium [Voltaren 1% Gel] 1 gm TOP QID - Plan Plan:: 1. Changes Tylenol to thousand grams 3 times a day. 2. Voltaren gel 4 times a day to the left knee. 3. The cardiology's urgently likes to avoid NSAIDs after heart attacks. 4. If the patient is not doing better in 2 days consider cortisone injection.
[2020-02-14] MEDS: Potassium Chloride 20 MEQ Tab.ER PO SCH ×2 (08:54→17:36)
[2020-02-14] MEDS: Furosemide 40 MG Tab PO SCH ×2 (08:54→13:29)
[2020-02-14] MEDS: Meloxicam 7.5 MG Tab PO SCH (08:55)
[2020-02-14] MEDS: Multivitamin Tab PO SCH (08:55)
[2020-02-14] MEDS: Cholecalciferol (Vitamin D3) 25 MCG Tab PO SCH (08:56)
[2020-02-14] MEDS: Aspirin 81 MG Tab.Chew PO SCH (08:57)
[2020-02-14] MEDS ORDERED: Diclofenac Sodium 1% Gel 100 GM Tube TOP SCH (09:00)
[2020-02-14] MEDS: Diclofenac Sodium 1% Gel 100 GM Tube TOP SCH ×5 (09:30→20:12)
[2020-02-14] MEDS: Enoxaparin 30 MG/0.3 ML Syringe SUBCUT SCH (11:31)
[2020-02-14] MEDS: Tamsulosin 0.4 MG Cap.ER PO SCH (20:10)
[2020-02-14] MEDS: Escitalopram 10 MG Tab PO SCH (20:11)
[2020-02-14] MEDS: atorvaSTATin 10 MG Tab PO SCH (20:11)
[2020-02-14] MEDS: traZODone 50 MG Tab PO SCH (20:12)
[2020-02-15] MEDS: Furosemide 40 MG Tab PO SCH ×2 (08:47→13:00)
[2020-02-15] MEDS: Potassium Chloride 20 MEQ Tab.ER PO SCH ×2 (08:47→17:30)
[2020-02-15] MEDS: Aspirin 81 MG Tab.Chew PO SCH (08:47)
[2020-02-15] MEDS: Acetaminophen 500 MG Tab PO SCH ×3 (08:48→20:10)
[2020-02-15] MEDS: Meloxicam 7.5 MG Tab PO SCH (08:48)
[2020-02-15] MEDS: Multivitamin Tab PO SCH (08:48)
[2020-02-15] MEDS: Diclofenac Sodium 1% Gel 100 GM Tube TOP SCH ×4 (08:49→20:09)
[2020-02-15] MEDS: Cholecalciferol (Vitamin D3) 25 MCG Tab PO SCH (08:49)
[2020-02-15] MEDS: Enoxaparin 30 MG/0.3 ML Syringe SUBCUT SCH (11:37)
[2020-02-15] MEDS: traZODone 50 MG Tab PO SCH (20:10)
[2020-02-15] MEDS: atorvaSTATin 10 MG Tab PO SCH (20:10)
[2020-02-15] MEDS: Escitalopram 10 MG Tab PO SCH (20:11)
[2020-02-15] MEDS: Tamsulosin 0.4 MG Cap.ER PO SCH (20:11)
--- NOTE | 2020-02-16 08:18 | PCM.PN ---
- General Info Date of Service: 02/16/20 Admission Dx/Problem (Free Text): Patient without complaints. Patient states the Voltaren and the Tylenol thousand milligrams 3 times a day with his low back is really helped his left knee. Denies chest pain, shortness breath or fevers. - Patient Data Vitals - Most Recent: Last Vital Signs Temp 98.4 F 02/15/20 08:00 Pulse 88 02/15/20 08:00 Resp 20 02/15/20 08:00 BP 117/67 02/15/20 08:00 Pulse Ox 93 L 02/15/20 08:00 Weight - Most Recent: 208 lb 8 oz I&O - Last 24 Hours: Intake & Output 02/15/20 02/16/20 02/16/20 22:59 06:59 14:59 Intake Total 800 Balance 800 Lab Results Last 24 Hours: Laboratory Results - last 24 hr 02/15/20 02/15/20 02/16/20 Range/Units 06:14 17:29 06:38 POC Glucose 174 H D 83 D 155 H (80-116) mg/dL Med Orders - Current: Current Medications Acetaminophen (Tylenol Extra Strength) 1,000 mg PO TID [facility] Last Admin: 02/15/20 20:10 Dose: 1,000 mg Documented by: Albuterol/Ipratropium (Duoneb 3.0-0.5 Mg/3 Ml) 3 ml NEB Q4H PRN PRN Reason: Wheezing Last Admin: 02/06/20 00:13 Dose: 3 ml Documented by: Aspirin (Aspirin) 81 mg PO DAILY [facility] Last Admin: 02/15/20 08:47 Dose: 81 mg Documented by: Atorvastatin Calcium (Lipitor) 10 mg PO BEDTIME [facility] Last Admin: 02/15/20 20:10 Dose: 10 mg Documented by: Cholecalciferol (Vitamin D3) 25 mcg PO DAILY [facility] Last Admin: 02/15/20 08:49 Dose: 25 mcg Documented by: Diclofenac Sodium (Voltaren 1% Gel) 4 gm TOP QID [facility] Last Admin: 02/15/20 20:09 Dose: 4 gm Documented by: Enoxaparin Sodium (Lovenox) 30 mg SUBCUT Q24H [facility] Last Admin: 02/15/20 11:37 Dose: 30 mg Documented by: Escitalopram Oxalate (Lexapro) 10 mg PO BEDTIME [facility] Last Admin: 02/15/20 20:11 Dose: 10 mg Documented by: Furosemide (Lasix) 40 mg PO BIDDIURETIC [facility] Last Admin: 02/15/20 13:00 Dose: 40 mg Documented by: Glipizide (Glucotrol) 10 mg PO DAILY [facility] Last Admin: 02/15/20 08:48 Dose: 10 mg Documented by: Meloxicam (Mobic) 7.5 mg PO DAILY [facility] Last Admin: 02/15/20 08:48 Dose: 7.5 mg Documented by: Multivitamins/Minerals/Vitamin C (Tab-A-Jazmyn) 1 tab PO DAILY [facility] Last Admin: 02/15/20 08:48 Dose: 1 tab Documented by: Potassium Chloride (Klor-Con M20) 20 meq PO BIDMEALS [facility] Last Admin: 02/15/20 17:30 Dose: 20 meq Documented by: Tamsulosin HCl (Flomax) 0.4 mg PO BEDTIME [facility] Last Admin: 02/15/20 20:11 Dose: 0.4 mg Documented by: Trazodone HCl (Trazodone) 50 mg PO BEDTIME [facility] Last Admin: 02/15/20 20:10 Dose: 50 mg Documented by: Trolamine Salicylate (Aspercreme 10%) 0 gm TOP Q4H PRN PRN Reason: Pain Last Admin: 02/14/20 01:37 Dose: 1 applic Documented by: Discontinued Medications Acetaminophen (Tylenol) 650 mg PO Q4H PRN PRN Reason: Breakthrough Pain Last Admin: 02/06/20 00:13 Dose: 650 mg Documented by: Acetaminophen (Tylenol Extra Strength) 500 mg PO Q6H [facility] Last Admin: 02/14/20 01:34 Dose: 500 mg Documented by: Carvedilol (Coreg) 6.25 mg PO BID [facility] Cholecalciferol (Vitamin D3) 25 mcg PO DAILY [facility] Last Admin: 01/31/20 05:27 Dose: Not Given Documented by: Diclofenac Sodium (Voltaren 1% Gel) 1 gm TOP QID [facility] Last Admin: 02/14/20 16:43 Dose: 1 gm Documented by: Ibuprofen (Motrin) 200 mg PO Q6H [facility] Last Admin: 02/09/20 11:54 Dose: Not Given Documented by: Levofloxacin (Levaquin) 500 mg PO DAILY@1100 [facility] Last Admin: 01/29/20 12:45 Dose: 500 mg Documented by: Levofloxacin (Levaquin) 250 mg PO DAILY@1100 [facility] Stop: 02/02/20 11:01 Last Admin: 02/02/20 11:05 Dose: 250 mg Documented by: Losartan Potassium (Cozaar) 100 mg PO DAILY [facility] Metformin HCl (Glucophage Xr) 1,000 mg PO WITHDINNER [facility] Last Admin: 02/08/20 18:06 Dose: 1,000 mg Documented by: Potassium Chloride (Klor-Con 10) 10 meq PO DAILY [facility] Last Admin: 01/30/20 08:27 Dose: 10 meq Documented by: Potassium Chloride (Klor-Con 10) 10 meq PO ONETIME ONE Stop: 01/30/20 10:01 Last Admin: 01/30/20 11:23 Dose: 10 meq Documented by: - Exam General: Oriented, Cooperative Lungs: Clear to Auscultation, Normal Respiratory Effort Cardiovascular: Regular Rate, Regular Rhythm, No Murmurs Sepsis Event Note - Evaluation Sepsis Screening Result: No Definite Risk - Focused Exam Date Exam was Performed: 02/16/20 Time Exam was Performed: 08:17 - Problem List & Annotations (1) Osteoarthritis of left knee SNOMED Code(s): 827186042810931 Code(s): M17.12 - UNILATERAL PRIMARY OSTEOARTHRITIS, LEFT KNEE Status: Chronic Current Visit: Yes (2) Ambulatory dysfunction SNOMED Code(s): 676669539 Code(s): R26.2 - DIFFICULTY IN WALKING, NOT ELSEWHERE CLASSIFIED Status: Acute Current Visit: Yes (3) NSTEMI (non-ST elevated myocardial infarction) SNOMED Code(s): 01849624 Code(s): I21.4 - NON-ST ELEVATION (NSTEMI) MYOCARDIAL INFARCTION Status: Acute Current Visit: Yes (4) Pneumonia SNOMED Code(s): 590570651 Code(s): J18.9 - PNEUMONIA, UNSPECIFIED ORGANISM Status: Acute Current Visit: Yes Qualifiers: Pneumonia type: due to unspecified organism (5) Diabetes type 2, controlled SNOMED Code(s): 08685813, 835195881 Code(s): E11.9 - TYPE 2 DIABETES MELLITUS WITHOUT COMPLICATIONS Status: Chronic Current Visit: No Qualifiers: Diabetes mellitus buttermaker helper insulin use: without buttermaker helper use (6) Memory deficit SNOMED Code(s): 467249463 Code(s): R41.3 - OTHER AMNESIA Status: Chronic Current Visit: No - Problem List Review Problem List Initiated/Reviewed/Updated: Yes - My Orders Last 24 Hours: My Active Orders 02/16/20 08:15 Ready for Discharge [RC] PER UNIT ROUTINE - Plan Plan:: 1. Discharged to [facility] in [place] with PT/OT and home health.
--- NOTE | 2020-02-16 08:21 | PCM.DCSUM1 ---
Discharge Summary - Hospital Course Free Text/Narrative:: Hospital course-patient was admitted to swing bed. He was treated for 5 more days with Levaquin for his pneumonia. He was a 2 person assist. He had bad DJD left knee. He was put on meloxicam and Tylenol thousand milligrams 3 times a day with Voltarin gel over the knee and that helped him. He had no chest pain, shortness of breath fevers or chills was here. He continue to increase his strength PT/OT. He'll be discharged to [facility] the [place] PT/OT. Brief History: Charlie is a 79-year-old male admitted to swing bed for generalized weakness,for rehab. He had been in the acute setting being treated for pneumonia, and NSTEMI, CHF and dementia. He's had multiple falls at [facility], and is been very weak here needing more than 2 people for assistance with activities of daily living. Diagnosis: Stroke: No - Discharge Data Discharge Date: 02/16/20 Discharge Disposition: Home, Home Health Agency Condition: Good - Referral to Home Health Date of Face to Face Encounter: 02/16/20 Reason for Homebound Status: Weakness, status post pneumonia, status post and STEMI. DJD left knee. Primary Care Physician: Robert Swan MD Skilled Need: 1. PT/OT for strengthening and ambulation. Nurses to manage medications, disease teaching - Discharge Diagnosis/Problem(s) (1) Osteoarthritis of left knee SNOMED Code(s): 796097858976452 ICD Code: M17.12 - UNILATERAL PRIMARY OSTEOARTHRITIS, LEFT KNEE Status: Chronic Current Visit: Yes (2) Ambulatory dysfunction SNOMED Code(s): 497562786 ICD Code: R26.2 - DIFFICULTY IN WALKING, NOT ELSEWHERE CLASSIFIED Status: Acute Current Visit: Yes (3) NSTEMI (non-ST elevated myocardial infarction) SNOMED Code(s): 27834481 ICD Code: I21.4 - NON-ST ELEVATION (NSTEMI) MYOCARDIAL INFARCTION Status: Acute Current Visit: Yes (4) Pneumonia SNOMED Code(s): 945903587 ICD Code: J18.9 - PNEUMONIA, UNSPECIFIED ORGANISM Status: Acute Current Visit: Yes Qualifiers: Pneumonia type: due to unspecified organism (5) Diabetes type 2, controlled SNOMED Code(s): 05987362, 212188856 ICD Code: E11.9 - TYPE 2 DIABETES MELLITUS WITHOUT COMPLICATIONS Status: Chronic Current Visit: No Qualifiers: Diabetes mellitus salvage determiner insulin use: without salvage determiner use (6) Memory deficit SNOMED Code(s): 368719926 ICD Code: R41.3 - OTHER AMNESIA Status: Chronic Current Visit: No - Patient Summary/Data Consults: Consultations 01/29/20 11:29 OT Evaluation and Treatment [CONS] Routine Please Evaluate and Treat. OT Reason for Consult: ADL's This query below is only for informational purposes and is not editable. PT Evaluation and Treatment [CONS] Routine Please Evaluate and Treat. PT Reason for Consult: Ambulation This query below is only for informational purposes and is not editable. - Patient Instructions Diet: Diabetic Diet Activity: As Tolerated Driving: Do Not Drive Showering/Bathing: May Shower Notify Provider of: Increased Pain Other/Special Instructions: 1. Home health, PT/OT. 2. Recheck with Reagan Forde at [facility] in 1 week. - Discharge Plan Prescriptions/Med Rec: Diclofenac Sodium 100 gm TP QID #100 gel..gram. Meloxicam [Mobic] 7.5 mg PO DAILY #0 tablet Home Medications: Home Meds Aspirin 81 mg PO DAILY 12/20/15 [History] Carvedilol [Coreg] 6.25 mg PO BID 12/20/15 [History] Escitalopram [Lexapro] 10 mg PO BEDTIME 12/20/15 [History] Losartan [Cozaar] 100 mg PO DAILY 12/20/15 [History] Potassium Chloride [Klor-Con 10] 10 meq PO DAILY 12/20/15 [History] Tamsulosin HCl [Flomax] 0.4 mg PO BEDTIME 12/20/15 [History] atorvaSTATin [Lipitor] 10 mg PO BEDTIME 12/20/15 [History] glipiZIDE [Glucotrol] 10 mg PO DAILY 12/20/15 [History] traZODone 50 mg PO BEDTIME 12/20/15 [History] Multivitamin [Multi-Vitamin Daily] 1 each PO DAILY 01/23/20 [History] metFORMIN HCl [Metformin HCl ER] 1,000 mg PO WITHDINNER 01/26/20 [History] Cholecalciferol (Vitamin D3) [Vitamin D3] 25 mcg PO DAILY tablet 01/29/20 [Rx] Furosemide [Lasix] 40 mg PO BIDDIURETIC #60 tablet 01/29/20 [Rx] Acetaminophen [Tylenol Extra Strength] 1,000 mg PO TID tablet 02/16/20 [Rx] Diclofenac Sodium 100 gm TP QID #100 gel..gram. 02/16/20 [Rx] Meloxicam [Mobic] 7.5 mg PO DAILY #0 tablet 02/16/20 [Rx] - Discharge Summary/Plan Comment DC Time >30 min.: No - Patient Data Vitals - Most Recent: Last Vital Signs Temp 98.4 F 02/15/20 08:00 Pulse 88 02/15/20 08:00 Resp 20 02/15/20 08:00 BP 117/67 02/15/20 08:00 Pulse Ox 93 L 02/15/20 08:00 Weight - Most Recent: 208 lb 8 oz I&O - Last 24 hours: Intake & Output 02/15/20 02/16/20 02/16/20 22:59 06:59 14:59 Intake Total 800 Balance 800 Lab Results - Last 24 hrs: Laboratory Results - last 24 hr 02/15/20 02/15/20 02/16/20 Range/Units 06:14 17:29 06:38 POC Glucose 174 H D 83 D 155 H (80-116) mg/dL Med Orders - Current: Current Medications Acetaminophen (Tylenol Extra Strength) 1,000 mg PO TID [facility] Last Admin: 02/15/20 20:10 Dose: 1,000 mg Documented by: Albuterol/Ipratropium (Duoneb 3.0-0.5 Mg/3 Ml) 3 ml NEB Q4H PRN PRN Reason: Wheezing Last Admin: 02/06/20 00:13 Dose: 3 ml Documented by: Aspirin (Aspirin) 81 mg PO DAILY [facility] Last Admin: 02/15/20 08:47 Dose: 81 mg Documented by: Atorvastatin Calcium (Lipitor) 10 mg PO BEDTIME [facility] Last Admin: 02/15/20 20:10 Dose: 10 mg Documented by: Cholecalciferol (Vitamin D3) 25 mcg PO DAILY [facility] Last Admin: 02/15/20 08:49 Dose: 25 mcg Documented by: Diclofenac Sodium (Voltaren 1% Gel) 4 gm TOP QID [facility] Last Admin: 02/15/20 20:09 Dose: 4 gm Documented by: Enoxaparin Sodium (Lovenox) 30 mg SUBCUT Q24H [facility] Last Admin: 02/15/20 11:37 Dose: 30 mg Documented by: Escitalopram Oxalate (Lexapro) 10 mg PO BEDTIME [facility] Last Admin: 02/15/20 20:11 Dose: 10 mg Documented by: Furosemide (Lasix) 40 mg PO BIDDIURETIC [facility] Last Admin: 02/15/20 13:00 Dose: 40 mg Documented by: Glipizide (Glucotrol) 10 mg PO DAILY [facility] Last Admin: 02/15/20 08:48 Dose: 10 mg Documented by: Meloxicam (Mobic) 7.5 mg PO DAILY [facility] Last Admin: 02/15/20 08:48 Dose: 7.5 mg Documented by: Multivitamins/Minerals/Vitamin C (Tab-A-Jazmyn) 1 tab PO DAILY [facility] Last Admin: 02/15/20 08:48 Dose: 1 tab Documented by: Potassium Chloride (Klor-Con M20) 20 meq PO BIDMEALS [facility] Last Admin: 02/15/20 17:30 Dose: 20 meq Documented by: Tamsulosin HCl (Flomax) 0.4 mg PO BEDTIME [facility] Last Admin: 02/15/20 20:11 Dose: 0.4 mg Documented by: Trazodone HCl (Trazodone) 50 mg PO BEDTIME [facility] Last Admin: 02/15/20 20:10 Dose: 50 mg Documented by: Trolamine Salicylate (Aspercreme 10%) 0 gm TOP Q4H PRN PRN Reason: Pain Last Admin: 02/14/20 01:37 Dose: 1 applic Documented by: Discontinued Medications Acetaminophen (Tylenol) 650 mg PO Q4H PRN PRN Reason: Breakthrough Pain Last Admin: 02/06/20 00:13 Dose: 650 mg Documented by: Acetaminophen (Tylenol Extra Strength) 500 mg PO Q6H [facility] Last Admin: 02/14/20 01:34 Dose: 500 mg Documented by: Carvedilol (Coreg) 6.25 mg PO BID [facility] Cholecalciferol (Vitamin D3) 25 mcg PO DAILY [facility] Last Admin: 01/31/20 05:27 Dose: Not Given Documented by: Diclofenac Sodium (Voltaren 1% Gel) 1 gm TOP QID [facility] Last Admin: 02/14/20 16:43 Dose: 1 gm Documented by: Ibuprofen (Motrin) 200 mg PO Q6H [facility] Last Admin: 02/09/20 11:54 Dose: Not Given Documented by: Levofloxacin (Levaquin) 500 mg PO DAILY@1100 [facility] Last Admin: 01/29/20 12:45 Dose: 500 mg Documented by: Levofloxacin (Levaquin) 250 mg PO DAILY@1100 [facility] Stop: 02/02/20 11:01 Last Admin: 02/02/20 11:05 Dose: 250 mg Documented by: Losartan Potassium (Cozaar) 100 mg PO DAILY [facility] Metformin HCl (Glucophage Xr) 1,000 mg PO WITHDINNER [facility] Last Admin: 02/08/20 18:06 Dose: 1,000 mg Documented by: Potassium Chloride (Klor-Con 10) 10 meq PO DAILY [facility] Last Admin: 01/30/20 08:27 Dose: 10 meq Documented by: Potassium Chloride (Klor-Con 10) 10 meq PO ONETIME ONE Stop: 01/30/20 10:01 Last Admin: 01/30/20 11:23 Dose: 10 meq Documented by:
[2020-02-16] MEDS: Meloxicam 7.5 MG Tab PO SCH (08:26)
[2020-02-16] MEDS: Multivitamin Tab PO SCH (08:26)
[2020-02-16] MEDS: Acetaminophen 500 MG Tab PO SCH ×2 (08:26→13:44)
[2020-02-16] MEDS: Cholecalciferol (Vitamin D3) 25 MCG Tab PO SCH (08:26)
[2020-02-16] MEDS: Potassium Chloride 20 MEQ Tab.ER PO SCH (08:26)
[2020-02-16] MEDS: Aspirin 81 MG Tab.Chew PO SCH (08:26)
[2020-02-16] MEDS: Furosemide 40 MG Tab PO SCH ×2 (08:27→13:43)
[2020-02-16] MEDS: Diclofenac Sodium 1% Gel 100 GM Tube TOP SCH ×2 (08:28→13:44)
[2020-02-16 10:36] VITALS: BP 110/65; PULSE 104
[2020-02-16] MEDS: Enoxaparin 30 MG/0.3 ML Syringe SUBCUT SCH (12:01)
== END 2020-02-16 14:20 | disposition home health service (06) | DRG 193 ==
LOC: FB.MS 09:00
PROVIDERS: ADMIT Family Medicine; ATTEND Family Medicine
DX: J18.9 Pneumonia, unspecified organism (principal); I21.4 Non-ST elevation (NSTEMI) myocardial infarction; I50.22 Chronic systolic (congestive) heart failure; S22.32XA Fracture of one rib, left side, initial encounter for closed fracture; I11.0 Hypertensive heart disease with heart failure; R53.1 Weakness; E11.9 Type 2 diabetes mellitus without complications; R41.3 Other amnesia; R29.6 Repeated falls; F03.90 Unspecified dementia, unspecified severity, without behavioral disturbance, psychotic disturbance, mood disturbance, and anxiety; M17.12 Unilateral primary osteoarthritis, left knee; F41.9 Anxiety disorder, unspecified; N40.0 Benign prostatic hyperplasia without lower urinary tract symptoms; Z79.82 Long term (current) use of aspirin; Z79.84 Long term (current) use of oral hypoglycemic drugs; Z91.81 History of falling; Z86.73 Personal history of transient ischemic attack (TIA), and cerebral infarction without residual deficits; Z79.899 Other long term (current) drug therapy; Z88.2 Allergy status to sulfonamides
CPT/HCPCS: 36415; 70450; 71101-LT; 73562-LT; 80048; 82962; 83735; 83880; 84484; 85025; 93005; 94640; 97110-GO; 97110-GP; 97116-GP; 97530-GO; 97530-GP; 97535-GO; A9270-GY; J1650; J7620-GY